=== PATIENT | female | born 1930 | race Caucasian/White ===

== ENCOUNTER 2016-07-12 12:49 | Observation (INO) | payer MEDICARE ==
[2016-07-12 13:34] LABS: #Basophils 0.1 thou/uL (0.0-0.2); #Eosinphils 0.2 thou/uL (0.0-0.7); #Lymphocytes 3.6 thou/uL (1.20-3.40); #Neutrophils 6.5 thou/uL (1.40-6.50); %Basophils 1.2 % (0.0-1.0); %Monocytes 8.4 % (0.0-10.0); Hematocrit 36.6 % (36.0-47.0); Mean Platelet Volume 7.1 fL (7.4-10.4); Red Blood Cell (RBC) Count 3.88 mill/uL (4.20-5.40); White Blood Cell (WBC) Count 11.4 thou/uL (4.8-10.8)
[2016-07-12 13:39] LABS: Bilirubin Negative (Negative); Blood, Urine Trace (Negative); Glucose, Urine (Dipstick) Negative (Negative); Ketone, Urine Negative (Negative); Nitrite Negative (Negative); Protein, Urine (Dipstick) Trace mg/dL (Neg-Trace); Urobilinogen 0.2 mg/dL (0.2-1.0)
[2016-07-12 13:49] LABS: Bacteria/HPF Rare-Few HPF (None Seen); RBC/HPF 0-3 HPF (0-3); Squamous Epithelial 0-3 HPF (0-3); WBC/HPF 0-3 HPF (0-3)
[2016-07-12 13:50] LABS: ALT (SGPT) 27 U/L (0-55); AST (SGOT) 28 U/L (5-34); Alkaline Phosphatase 90 U/L (40-150); Anion Gap 14 mmol/L (10-20); BUN (Urea Nitrogen) 67 mg/dL (9.8-20.1); Bilirubin, Total 0.3 mg/dL (0.2-1.2); Calc. Creatinine Clearance 0 mL/min (70-130); Calcium 9.3 mg/dL (7.8-10.44); Carbon Dioxide 25 mmol/L (23-31); Chloride 105 mmol/L (98-107); Estimated GFR-MDRD 23; Globulin 3.3 g/dL (2.4-3.5); Protein, Total 7.1 g/dL (5.8-8.1)
[2016-07-12 13:52] LABS: Troponin I Less than 0.010 ng/mL (< 0.028)
[2016-07-12 14:03] LABS: Lactic Acid - Sepsis 0.7 mmol/L (0.5-2.2)
[2016-07-12] MEDS ORDERED: Meclizine HCl 25 MG TAB ONE (14:27)
[2016-07-12] MEDS ORDERED: Metoclopramide HCl 10 MG/2 ML VIAL ONE (14:28)
--- NOTE | 2016-07-12 15:24 | ERRECORD ---
[facility] EMERGENCY RECORD HPI WEAK-DIZZY (13:15 DHAM) CHIEF COMPLAINT: Patient presents for evaluation of vertigo. HISTORIAN: History provided by patient, History provided by patient's family, Daughter that lives with her., Additional history obtained from EMS, Pt has "been dragging for a couple of days" with occas chills and hot flashes and nasal congestion. Had been about the same this morning and ate a big lunch and noted sudden onset of severe dizziness with nausea and one episode of vomiting. Also c/o left ear pain. This is similar to "4-5 episodes in my life where I get really dizzy and vomited." She and daughter tell me this usually resolves after 1-2 days and is usually associated with a URI. "I usually get better after I get on antibiotics. She has chronic vertigo symptoms "with the room spinning if I get too flat on a bed." She arrives via EMS. LOCATION: Symptoms are localized, left ear is painful. QUALITY: Patient is alert and oriented to person, place and time, Iftikhar coma score is 15, Pain is dull in nature, described as aching, Described as similar to previous episodes. SEVERITY: Current severity of pain rated as 0/10. TIME COURSE: Gradual onset of symptoms, 2, days priror to arrival, Symptoms are improving, "I'm not dizzy as long as I don't move my head.", with vertigo symptoms just starting 1 hours ago. ASSOCIATED WITH: Associated with ataxia, for 1 hour, No associated chest pain, Associated with chills, for 2 days, Associated with ear pain, for 2 hours, intermittent, Associated with fever, subjective, Associated with gait disturbance, No associated headache, Associated with nausea, for 1 hour, No associated palpitations, Associated with vomiting, Number of times: 1, for 1 hour, currently resolved, No associated visual changes, Associated with upper respiratory infection, for 2 days, constant. EXACERBATED BY: Patient's condition exacerbated by ambulating, Patient's condition exacerbated by position, Patient's condition exacerbated by movement, Patient's condition exacerbated by laying supine. RELIEVED BY: Patient's condition relieved by remaining still, Patient's condition relieved by received zofran 4mg en route and sitting upright helps. ROS (13:26 DHAM) CONSTITUTIONAL: Historian reports chills, reports fever. Subjective fever of mild hot flashes, Historian reports malaise, for 2 days now. EYES: Historian denies eye pain, denies eye redness, denies eye discharge, denies itching, denies nystagmus, denies photophobia, denies tearing, denies vision changes. ENT: Historian denies dysphasia, reports otalgia, &a-1R&a+25V*p+0X*c6340Y*c202B*c15G*c2P*p-0X&a-25V&a+1R Name: Susanne Nagel : 1930 F86 MedRec: [id number] AcctNum: [id number] Prepared: SunJul 13, 2016 01:22 by Interface Page 1 of 5 pMD [facility] EMERGENCY RECORD reports rhinorrhea, denies voice changes. CARDIOVASCULAR: Historian denies chest pain, no radiation, Historian denies diaphoresis, denies dyspnea on exertion, denies edema, denies orthopnea, denies syncope, denies palpitations. RESPIRATORY: Historian denies cough, denies shortness of breath, denies sputum, denies wheezing. GI: Historian denies abdominal pain, denies appetite changes, denies diarrhea, reports nausea, reports vomiting. GENITOURINARY FEMALE: Historian denies dysuria, denies frequency, denies urgency. "I go all the time but that's been the case for about a year.". MUSCULOSKELETAL: Historian denies arthralgias, denies back pain, denies fall, denies injury, denies neck pain. SKIN: Historian denies rash, denies skin changes. NEUROLOGIC: Historian denies confusion, reports dizziness, denies dysphasia, denies focal weakness, reports gait changes, denies headache, denies mental status changes, denies paralysis, denies paresthesias, denies seizures, denies sensory changes, denies speech changes, reports vertigo. ENDOCRINE: Historian denies polydipsia, denies polyuria. HEMO/LYMPHATIC: Historian denies abnormal blood clotting, denies easy bruising. ALLERGIC/IMMUNOLOGIC: Historian denies frequent infections, denies hives. PSYCHIATRIC: Negative psychiatric review of systems. PAST MEDICAL HISTORY MEDICAL HISTORY: Flu vaccine not up to date, Tetanus not up to date, Pneumococcal vaccine not up to date, GOUT, Past medical history includes history of diabetes, Past medical history includes history of hyperlipidemia, Past medical history includes history of hypertension. (Previously on hemodialysis, no longer recieving dialysis since January 2016) Verified 07/12/16. (13:25 LGIB) FEMALE SURGICAL HISTORY: Surgical history of tubal ligation. Peg tube placement and removal, heart valve replacement. Verified 07/12/16. (13:25 LGIB) PSYCHIATRIC HISTORY: No previous psychiatric history Verified 07/12/16. (13:25 LGIB) SOCIAL HISTORY: Patient denies alcohol use, Patient denies drug use, Patient has no smoking history. (13:25 LGIB) NOTES: I have reviewed the nursing documentation regarding PMHX, social hx, family hx, and surgical history as well as vitals and triage notes and agree. (13:32 DHAM) KNOWN ALLERGIES Keflex: - TIGHTNESS IN CHEST CURRENT MEDICATIONS allopurinol: &a-1R&a+25V*p+0X*c8599R*c202B*c15G*c2P*p-0X&a-25V&a+1R Name: Susanne Nagel : 1930 F86 MedRec: [id number] AcctNum: [id number] Prepared: Johanna Jul 13, 2016 01:22 by Interface Page 2 of 5 pMD [facility] EMERGENCY RECORD TABLET : Strength - 100 mg : ORAL Patient Dose: 100 mg Oral once a day. (13:10 LGIB) meTOPROLOL tartrate: TABLET : Strength - 25 mg : ORAL Patient Dose: 1 tab(s) Oral once a day. (13:10 LGIB) amLODIPine: TABLET : Strength - 5 mg : ORAL Patient Dose: 5 mg Oral once a day. (13:10 LGIB) glipiZIDE: TABLET : Strength - 5 mg : ORAL Patient Dose: 2.5 mg Oral once a day. (13:11 LGIB) atorvastatin: TABLET : Strength - 20 mg : ORAL Patient Dose: 1 tab(s) Oral once a day. (13:11 LGIB) aspirin: TABLET : Strength - 81 mg : ORAL Patient Dose: 1 tab(s) Oral once a day. (13:12 LGIB) VITAL SIGNS VITAL SIGNS: BP: 193/82, Pulse: 79, Resp: 20, Temp: 98.6 (Oral), O2 sat: 99 on Room Air, Time: 07/12/2016 13:00. (13:00 LSMI) Pain: 0, Time: 07/12/2016 13:01. (13:01 LSMI) BP: 159/82, Time: 07/12/2016 13:09. (13:09 LGIB) BP: 159/69, Pulse: 71, Resp: 18, Pain: 0, O2 sat: 98 on Room Air, Time: 07/12/2016 13:59. (13:59 LSMI) BP: 162/74, Pulse: 72, Resp: 17, Pain: 0, O2 sat: 97 on Room Air, Time: 07/12/2016 14:43. (14:43 LSMI) PHYSICAL EXAM (13:29 DHAM) CONSTITUTIONAL: Vital Signs Reviewed, Patient afebrile, Pulse normal, Blood pressure normal, Respiratory rate normal, Normal pulse oximetry, Patient appears non toxic, Patient appears pain free, Patient alert and oriented to person, place and time, Nursing notes reviewed. HEAD: Head exam included findings of head atraumatic, normocephalic. EYES: Eye exam included findings of eyelids normal to inspection, Pupils equally round and reactive to light, Extraocular muscles intact, Conjunctiva normal, Sclera normal, Eye exam included findings of anterior chamber clear. no nystagmus. no visual field defects. ENT: Ear exam normal, external ear normal, tympanic membranes normal, no foreign body, no drainage, no bleeding, hearing normal, Nose exam normal, no nasal deformity, no bleeding from nares, no bleeding from hypopharynx, no foreign body visualized, no septal hematoma, no septal necrosis, No turbinate mucosa discharge, Pharynx exam normal, not injected, no swelling, symmetrical, Uvula exam normal, midline, no edema, Tonsil exam normal, not enlarged, no exudates, Mouth exam normal, mucous membranes moist, no drooling, no lesions, no lacerations, no tongue elevation, teeth normal. &a-1R&a+25V*p+0X*y4216Y*c202B*c15G*c2P*p-0X&a-25V&a+1R Name: Susanne Nagel : 1930 F86 MedRec: [id number] AcctNum: [id number] Prepared: Johanna Jul 13, 2016 01:22 by Interface Page 3 of 5 D [facility] EMERGENCY RECORD NECK: Neck exam included findings of normal range of motion, Trachea midline, Thyroid normal, no meningeal signs, no cervical adenopathy, no tenderness, no contusions, no ecchymosis. RESPIRATORY CHEST: Respiratory exam included findings of no respiratory distress, Breath sounds clear, No wheezing, No rales, No rhonchi, Breath sounds not diminished, Chest exam included findings of chest movement symmetrical. CARDIOVASCULAR: Cardiovascular exam included findings of heart rate regular rate and rhythm, Heart sounds normal, normal S1, normal S2, no murmurs, no rub, no gallop. ABDOMEN FEMALE: Abdominal exam included findings of abdomen nontender, Bowel sounds normal, Liver normal, Spleen normal, no distension, no pulsatile masses, no peritoneal signs, no ventral hernia. BACK: Back exam normal. UPPER EXTREMITY: Upper extremity exam normal, Upper extremity exam included findings of inspection normal, no abrasions, no contusions, no deformity, no lacerations, Range of motion normal, Motor strength normal, Sensation intact, Brachial pulse normal, Radial pulse normal. LOWER EXTREMITY: Lower extremity exam normal, Lower extremity exam included findings of inspection normal, no abrasions, no contusions, no deformity, no lacerations, Range of motion normal, Motor strength normal, Sensation intact, Pedal pulse normal, Miky's negative, no edema, no calf tenderness. NEURO: Neuro exam findings include patient oriented to person, place and time, Speech normal, no nystagmus, NIHSS is 0, [place] coma scale 15, Memory normal, Cranial nerves intact, Deep tendon reflexes normal, no focal motor deficits, no focal sensory deficits. She has a mild baseline intention tremor that has been present for years. test of skew is neg. no nystagmus on lateral gaze. She could not lay back quickly enough to really perform an adequate barany maneuver and declines to lay to the left because "I always get really dizzy when I lay on my left side for years now." Head impulse test shows a past gaze to the right but not to the left. I suspect this is vertigo vs labyrinthitis. SKIN: Skin exam included findings of skin warm, dry, and normal in color, no rash. LYMPHATIC: Lymphatic exam normal, Lymphatic exam included findings of cervical nodes normal. PSYCHIATRIC: Psychiatric exam included findings of patient oriented to person place and time, Normal affect, Judgment normal, Insight normal, Remote memory normal, Recent memory normal, Concentration normal, No suicidal ideations, No homicidal ideations. EKG INTERPRETATION (13:13 DHAM) 12 LEAD EKG INTERPRETATION: 12 lead EKG interpreted by Emergency Department Physician at time of study, 12 lead EKG shows normal sinus rhythm, Rate (beats per minute): 71, with no ectopics, Compared with previous EKG from, 04/18/2015 13:14, Similar to old EKG, Conduction &a-1R&a+25V*p+0X*n5691Z*c202B*c15G*c2P*p-0X&a-25V&a+1R Name: Susanne Nagel : 1930 F86 MedRec: [id number] AcctNum: [id number] Prepared: [facility] Jul 13, 2016 01:22 by Interface Page 4 of 5 pMD [facility] EMERGENCY RECORD with, first degree AV block, ST segments normal, T waves normal, [place] normal. RADIOLOGYINTERPRETATION HEAD: Head CT negative, without contrast, no bleed, no mass, no acute ischemic stroke, no acute changes, Pt discussed with Dr. Rosales at 1340. (13:58 DHAM) CHEST: Chest films negative, no infiltrates, no pneumothorax, no hemothorax, no masses, no cardiomegaly, no congestive heart failure, no effusion, no free air. (13:59 DHAM) MEDICATION ADMINISTRATION SUMMARY Drug Name: Antivert, Dose Ordered: 1 tab(s), Route: Oral, Status: Canceled, Time: 14:27 07/12/2016, Drug Name: *Reglan injection, Dose Ordered: 5 mg, Route: IV Piggy Back, Status: Given, Time: 14:40 07/12/2016, Drug Name: *Antivert, Dose Ordered: 12.5 mg, Route: Oral, Status: Given, Time: 14:25 07/12/2016, *Additional information available in notes, Detailed record available in Medication Service section. DOCTOR NOTES TEXT: I discussed the pt with Dr. Gomez at 1420 who accepts the pt into obs. (14:26 DHAM) Pt has fairly normal labs and bun/creat appear at baseline. She has no focal neuro changes but with standing, she retropulses and falls backward. Her daughter says that this is worse than usual but she has had "bad vertigo" if she lays on her left side" for many years. She may have a viral labyrinthitis vs VGE vs Benign positional vertigo. I had originally suggested an MRI but they are adamant that this has been going on for years and decline a transfer to [place] in [place]. She does consent to observation to our facility. (14:29 DHAM) PROBLEM LIST No recorded problems DIAGNOSIS (14:34 DHAM) FINAL: PRIMARY: BENIGN PAROXYSMAL VERTIGO BILATERAL, ADDITIONAL: viral gastroenteritis. PRESCRIPTION No recorded prescriptions DISPOSITION PATIENT: Disposition Type: Admit, Disposition: [facility]. (14:34 DHAM) Patient left the department. (15:13 LSMI) Ochoa: RUSSELL=MD Darius, Shawn LGIB=VIKAS Swan, Maria Teresa LSMI=NESSA Castro Leah &a-1R&a+25V*p+0X*f3082C*c202B*c15G*c2P*p-0X&a-25V&a+1R Name: Susanne Nagel : 1930 F86 MedRec: [id number] AcctNum: [id number] Prepared: [facility] Jul 13, 2016 01:22 by Interface Page 5 of 5 pMD MTDD
--- NOTE | 2016-07-12 15:27 | PICIS ---
[facility] EMERGENCY RECORD TRIAGE (12:56 LGIB) TRIAGE NOTES: N/V, DIZZINESS. (12:56 LGIB) PATIENT: NAME: Susanne Nagel, AGE: 86, GENDER: female, : [id number], TIME OF GREET: SunJul 12, 2016 12:50, PREFERRED LANGUAGE: Spanish, ETHNICITY: Not or , ECODE BILLING MAP: [facility], SSN: [id number], Zip Code: [address], KG WEIGHT: 63.50, PHONE: , , , PERSON ID: [id number], PAYMENT: [employer], PCP: MD Chance Kyle. (12:56 LGIB) COMPLAINT: N/V DIZZY. (12:56 LGIB) ADMISSION: URGENCY: 3 Urgent, ADMISSION SOURCE: Home, AMBULANCE: [facility], TRANSPORT: AMBULANCE - [facility], BED: ER -04. (12:56 LGIB) SIRS SCORING: Heart Rate 55-109 (0), Temp range 96.8-101.1 (0), respiratory rate 12-24 (0), Mental Status altered: no (0), Total SIRS Score 0. (13:22 LGIB) Heart Rate 55-109 (0), Temp range 96.8-101.1 (0), respiratory rate 12-24 (0), Mental Status altered: no (0), Total SIRS Score 0. (13:25 LGIB) TREATMENTS IN PROGRESS: Treatments given Prehospital: NS and 4mg zofran. (13:25 LGIB) PROVIDERS: TRIAGE NURSE: Maria Teresa Swan RN. (12:56 LGIB) PREVIOUS VISIT ALLERGIES: Keflex. (12:56 LGIB) Keflex. (13:25 LGIB) KNOWN ALLERGIES Keflex: - TIGHTNESS IN CHEST CURRENT MEDICATIONS allopurinol: TABLET : Strength - 100 mg : ORAL Patient Dose: 100 mg Oral once a day. (13:10 LGIB) meTOPROLOL tartrate: TABLET : Strength - 25 mg : ORAL Patient Dose: 1 tab(s) Oral once a day. (13:10 LGIB) amLODIPine: TABLET : Strength - 5 mg : ORAL Patient Dose: 5 mg Oral once a day. (13:10 LGIB) glipiZIDE: TABLET : Strength - 5 mg : ORAL Patient Dose: 2.5 mg Oral once a day. (13:11 LGIB) atorvastatin: TABLET : Strength - 20 mg : ORAL Patient Dose: 1 tab(s) Oral once a day. (13:11 LGIB) aspirin: TABLET : Strength - 81 mg : ORAL Patient Dose: 1 tab(s) Oral once a day. (13:12 LGIB) VITAL SIGNS VITAL SIGNS: BP: 193/82, Pulse: 79, Resp: 20, Temp: 98.6 (Oral), &a-1R&a+25V*p+0X*p4455A*c202B*c15G*c2P*p-0X&a-25V&a+1R Name: Susanne Nagel : 1930 F86 MedRec: [id number] AcctNum: [id number] Prepared: [facility] Jul 13, 2016 01:22 by Interface Page 1 of 12 pMD [facility] EMERGENCY RECORD O2 sat: 99 on Room Air, Time: 07/12/2016 13:00. (13:00 LSMI) Pain: 0, Time: 07/12/2016 13:01. (13:01 LSMI) BP: 159/82, Time: 07/12/2016 13:09. (13:09 LGIB) BP: 159/69, Pulse: 71, Resp: 18, Pain: 0, O2 sat: 98 on Room Air, Time: 07/12/2016 13:59. (13:59 LSMI) BP: 162/74, Pulse: 72, Resp: 17, Pain: 0, O2 sat: 97 on Room Air, Time: 07/12/2016 14:43. (14:43 LSMI) NURSING ASSESSMENT: FALL RISK (14:24 LGIB) FALL RISK: Fall risk assessment findings include: no history of falls (0), No bed rest greater than 2 days (0), No use of level of consciousness altering agents with mentation or cognitive changes (0), No change in blood pressure (0), No sensory deficits (0), Impaired mobility (3), Neurologic diagnosis (3), No elimination problems (0), No confusion (0), Total score 6. NURSING ASSESSMENT: HEAD-TO-TOE (13:15 LGIB) CONSTITUTIONAL: Complex assessment performed, Patient arrives, via [facility], History obtained from, family member: DAUGHTER, Patient appears, Patient cooperative, Patient alert, Oriented to person, place and time, Skin warm, Skin dry, Skin normal in color, Mucous membranes pink, Mucous membranes, dry, Patient is well-groomed, Patient complains of N/V, DIZZY, PT REPORTS HAVING EPISODES OF NAUSEA, VOMITING AND DIZZINESS THIS MORNING. WHEN PATIENT STANDS OR LEANS BACK SHE BECOMES DIZZY. NAD, RR EVEN AND UNLABORED. PAIN: Patient rates pain as 0 out of 10. SKIN: Skin assessment findings include skin warm, Skin dry, Skin normal in color. RESPIRATORY/CHEST: Breath sounds clear, Respiratory assessment findings include respiratory effort easy, Respirations regular, Conversing normally, Neck and chest exam findings include trachea midline, Chest expansion equal, Chest movement symmetrical, no signs of distress, no retractions noted, no cyanosis. CARDIOVASCULAR: Cardiovascular assessment findings include heart rate normal, Heart sounds normal, S1, S2, Left radial pulse +3(easily palpated, considered normal), Right radial pulse +3(easily palpated, considered normal), Left dorsalis pedis pulse +3(easily palpated, considered normal), Right dorsalis pedis pulse +3(easily palpated, considered normal). ABDOMEN: Abdomen assessment findings include abdomen symmetrical, Abdomen soft, non-tender, Bowel sound normal, Associated with nausea, Associated with vomiting, history of vomiting, NOT CURRENTLY IN THE E.R., no associated diarrhea. GENITOURINARY FEMALE: Notes: NO COMPLAINTS. NURSING PROCEDURE: ADMISSION ADMISSION: Report [facility] [id number] [facility] &a-1R&a+25V*p+0X*p5501A*c202B*c15G*c2P*p-0X&a-25V&a+1R Name: Susanne Nagel : 1930 F86 MedRec: [id number] AcctNum: [id number] Prepared: [facility] Jul 13, 2016 01:22 by Interface Page 2 of 12 D [facility] EMERGENCY RECORD Patient admitted to a medical-surgical unit, room number 117, Transported via cart/stretcher, Transported with disposable blood pressure cuff, Transported with saline lock. (15:13 LSMI) NURSING PROCEDURE: BEDSIDE RADIOLOGY (13:40 LGIB) BEDSIDE RADIOLOGY: Portable chest x-ray performed. NURSING PROCEDURE: MARINE SERVICE OPERATOR (12:58 LGIB) MARINE SERVICE OPERATOR: Patient placed on agronomy teacher, Patient placed on non-invasive blood pressure monitor, Patient placed on continuous pulse oximetry. NURSING PROCEDURE: COMMUNICATIONS COMMUNICATIONS: Physician, dr Rosales called with ct report and spoke with dr rodriguez. (13:39 LSMI) Physician, dr rodriguez spoke with dr chance regarding admission. (14:19 LSMI) NURSING PROCEDURE: EKG CHART (13:05 LSMI) PATIENT IDENTIFIER: Patient actively involved in identification process, Patient's identity verified by patient stating name, Patient's identity verified by patient stating date, Patient's identity verified by hospital ID bracelet, Patient's identity verified by family member. EKG: EKG indicated for dizziness, 12 lead EKG performed on the left chest, done by anil castro lvn, first EKG. FOLLOW-UP: After procedure, EKG for interpretation given to Dr. rodriguez. NURSING PROCEDURE: IV IV SITE 1: IV therapy indicated for hydration, IV therapy indicated for medication administration, IV established, to the left antecubital, using a 22 gauge catheter, Saline lock established, Notes: STARTED BY EMS FIELD GAUGER. (13:00 LGIB) FOLLOW-UP SITE 1: Notes: ivhl remains intact upon admission to room 117. (15:13 LSMI) NURSING PROCEDURE: LAB DRAW (13:24 LGIB) LAB DRAW: Lab draw indicated for obtaining specimens for evaluation, Initial lab draw performed, by venipuncture, from right antecubital, in one attempt, Lab specimens labeled in the presence of the patient and sent to lab, Notes: Done by Tuan Rader Tech. FOLLOW-UP: After procedure, dressing applied to site. NURSING PROCEDURE: NURSE NOTES (14:49 LGIB) NURSES NOTES: Notes: NO NEEDS AT THIS TIME, NAD, RR EVEN AND UNLABORED. NURSING PROCEDURE: TRANSPORT TO TESTS &a-1R&a+25V*p+0X*d8081C*c202B*c15G*c2P*p-0X&a-25V&a+1R Name: Susanne Nagel: 1930 F86 MedRec: [id number] AcctNum: [id number] Prepared: Johanna Jul 13, 2016 01:22 by Interface Page 3 of 12 [facility] EMERGENCY RECORD TRANSPORT TO TESTS: Transport indicated to facilitate diagnosis, Patient transported to CT scan, via cart, Accompanied by x-ray weld technician. (13:28 LGIB) FOLLOW-UP: After procedure, patient returned to emergency department. (13:36 LGIB) NURSING PROCEDURE: URINE COLLECTION (13:20 LSMI) PATIENT IDENTIFIER: Patient actively involved in identification process, Patient's identity verified by patient stating name, Patient's identity verified by patient stating date, Patient's identity verified by hospital ID bracelet, Patient's identity verified by family member. URINE COLLECTION FEMALE: Urine collected by straight cath, using an 8fr catheter kit, in one attempt. ORDER DETAILS Order Name: BLOOD GLUCOSE MONITOR, Status: Done, Time: 13:07/12/2016, User: JONG, - Ordered for: MD Rodriguez Darren, - Entered by: MD Rodriguez Darren - SunJul 12, 2016 13:12, - Quantity: 1, Order Name: MARINE SERVICE OPERATOR ED, Status: Done, Time: 13:13 07/12/2016, User: EVIE, - Ordered for: MD Rodriguez Darren, - Entered by: MD Rodriguez Darren - SunJul 12, 2016 13:12, - Quantity: 1, Order Name: Cardiac Profile w/CKMB & Troponin - I, Status: Active, Time: 13:12 07/12/2016, User: RUSSELL, - Ordered for: MD Rodriguez Darren, - Entered by: MD Rodriguez Darren - SunJul 12, 2016 13:12, - Quantity: 1, Order Name: CATH STRAIGHT ED, Status: Done, Time: 13:22 07/12/2016, User: JONG, - Ordered for: MD Rodriguez Darren, - Entered by: MD Rodriguez Darren - SunJul 12, 2016 13:12, - Quantity: 1, Order Name: CBC with Differential, Status: Active, Time: 13:12 07/12/2016, User: RUSSELL, - Ordered for: MD Rodriguez Darren, - Entered by: MD Rodriguez Darren - SunJul 12, 2016 13:12, - Quantity: 1, Order Name: Comprehensive Metabolic Panel, Status: Active, Time: 13:12 07/12/2016, User: RUSSELL, - Ordered for: MD Rodriguez Darren, - Entered by: MD Rodriguez Darren - SunJul 12, 2016 13:12, - Quantity: 1, Order Name: CT Brain WO Con, Status: Active, Time: 13:12 07/12/2016, User: RUSSELL, - Ordered for: MD Rodriguez Darren, &a-1R&a+25V*p+0X*u9288D*c202B*c15G*c2P*p-0X&a-25V&a+1R Name: Susanne Nagel : 1930 F86 MedRec: [id number] AcctNum: [id number] Prepared: [facility] Jul 13, 2016 01:22 by Interface Page 4 of 12 [facility] EMERGENCY RECORD - Entered by: MD Rodriguez Darren - SunJul 12, 2016 13:12, - Quantity: 1, Order Name: EKG 12 Lead in Emergency Room, Status: Active, Time: 13:12 07/12/2016, User: RUSSELL, - Ordered for: MD Rodriguez Darren, - Entered by: MD Rodriguez Darren - SunJul 12, 2016 13:12, - Quantity: 1, Order Name: ERRT Pulse Oximeter ER, Status: Active, Time: 13:12 07/12/2016, User: RUSSELL, - Ordered for: MD Rodriguez Darren, - Entered by: MD Rodriguez Darren - SunJul 12, 2016 13:12, - Quantity: 1, Order Name: Lactic Acid with repeat, Status: Active, Time: 13:12 07/12/2016, User: RUSSELL, - Ordered for: MD Rodriguez Darren, - Entered by: MD Rodriguez Darren - SunJul 12, 2016 13:12, - Quantity: 1, Order Name: Urinalysis w/ Rflx Microscopic, Status: Active, Time: 13:12 07/12/2016, User: RUSSELL, - Ordered for: MD Rodriguez Darren, - Entered by: MD Rodriguez Darren - SunJul 12, 2016 13:12, - Quantity: 1, Order Name: XR Chest 1 View Portable, Status: Active, Time: 13:12 07/12/2016, User: RUSSELL, - Ordered for: MD Rodriguez Darren, - Entered by: MD Rodriguez Darren - SunJul 12, 2016 13:12, - Quantity: 1. MEDICATION ADMINISTRATION SUMMARY Drug Name: Antivert, Dose Ordered: 1 tab(s), Route: Oral, Status: Canceled, Time: 14:27 07/12/2016, Drug Name: *Reglan injection, Dose Ordered: 5 mg, Route: IV Piggy Back, Status: Given, Time: 14:40 07/12/2016, Drug Name: *Antivert, Dose Ordered: 12.5 mg, Route: Oral, Status: Given, Time: 14:25 07/12/2016, *Additional information available in notes, Detailed record available in Medication Service section. MEDICATION SERVICE Antivert: Order: Antivert (meclizine HCl) - Dose: 12.5 mg : Oral Schedule: Now Notes: 12.5mg oral now. Ordered by: Shawn Rodriguez MD Entered by: Shawn Rodriguez MD SunJul 12, 2016 14:28 , Acknowledged by: Danae Castro LVN SunJul 12, 2016 14:30 Documented as given by: Danae Castro LVN SunJul 12, 2016 14:25 Patient, Medication, Dose, Route and Time verified prior to administration. Site: Medication administered S.L., Correct patient, time, route, &a-1R&a+25V*p+0X*x0526P*c202B*c15G*c2P*p-0X&a-25V&a+1R Name: AgustinryanAbel sierramarco a Bass : 1930 F86 MedRec: [id number] AcctNum: [id number] Prepared: [facility] Jul 13, 2016 01:22 by Interface Page 5 of 12 pMD [facility] EMERGENCY RECORD dose and medication confirmed prior to administration, Patient advised of actions and side-effects prior to administration, Allergies confirmed and medications reviewed prior to administration, Patient in position of comfort, Side rails up, Cart in lowest position, Family at bedside, Call light in reach. Reglan injection: Order: Reglan injection (metoclopramide HCl) - Dose: 5 mg : IV Piggy Back Schedule: Now Notes: in 50ml minibag please Ordered by: Shawn Rodriguez MD Entered by: Shawn Rodriguez MD SunJul 12, 2016 14:29 , Acknowledged by: Danae Castro LVN SunJul 12, 2016 14:30 Documented as given by: Danae Castro LVN SunJul 12, 2016 14:40 Patient, Medication, Dose, Route and Time verified prior to administration. IV SITE #1 IVPB or drip, initial infusion, IVPB mixed in: 100ml, via primary tubing, Catheter placement confirmed via flush prior to administration, IV site without signs or symptoms of infiltration during medication administration, No swelling during administration, No drainage during administration, IV flushed after administration, Correct patient, time, route, dose and medication confirmed prior to administration, Patient advised of actions and side-effects prior to administration, Allergies confirmed and medications reviewed prior to administration, Patient in position of comfort, Side rails up, Cart in lowest position, Family at bedside, Call light in reach. : Follow Up : Response assessment performed, No signs or symptoms of allergic reaction noted, _IV SITE #1:_, Medication infusion discontinued, on SunJul 12, 2016 15:10, 30 minutes, ., Total amount infused: 100, IV Line flushed after administration. (15:10 LSMI) (CANCELED) Antivert: Order: Antivert (meclizine HCl) - Dose: 1 tab(s) : Oral Schedule: Now Ordered by: Shawn Rodriguez MD Entered by: Shawn Rodriguez MD SunJul 12, 2016 14:17 , Acknowledged by: Danae Castro LVN SunJul 12, 2016 14:18 Canceled by: Shawn Rodriguez MD. SunJul 12, 2016 14:27 Cancel reason: Change in medication plan. HPI WEAK-DIZZY (13:15 DHAM) CHIEF COMPLAINT: Patient presents for evaluation of vertigo. HISTORIAN: History provided by patient, History provided by patient's family, Daughter that lives with her., Additional history obtained from EMS, Pt has "been dragging for a couple of days" with occas chills and hot flashes and nasal congestion. Had been about the same this morning and ate a big lunch and noted sudden onset of severe dizziness with nausea and one episode of vomiting. Also c/o left ear pain. This is similar to "4-5 episodes in my life where I get really dizzy and vomited." She and daughter tell me this usually resolves after 1-2 days and is usually &a-1R&a+25V*p+0X*y1334X*c202B*c15G*c2P*p-0X&a-25V&a+1R Name: Susanne Nagel : 1930 F86 MedRec: [id number] AcctNum: [id number] Prepared: SunJul 13, 2016 01:22 by Interface Page 6 of 12 pMD [facility] EMERGENCY RECORD associated with a URI. "I usually get better after I get on antibiotics. She has chronic vertigo symptoms "with the room spinning if I get too flat on a bed." She arrives via EMS. LOCATION: Symptoms are localized, left ear is painful. QUALITY: Patient is alert and oriented to person, place and time, [employer] coma score is 15, Pain is dull in nature, described as aching, Described as similar to previous episodes. SEVERITY: Current severity of pain rated as 0/10. TIME COURSE: Gradual onset of symptoms, 2, days priror to arrival, Symptoms are improving, "I'm not dizzy as long as I don't move my head.", with vertigo symptoms just starting 1 hours ago. ASSOCIATED WITH: Associated with ataxia, for 1 hour, No associated chest pain, Associated with chills, for 2 days, Associated with ear pain, for 2 hours, intermittent, Associated with fever, subjective, Associated with gait disturbance, No associated headache, Associated with nausea, for 1 hour, No associated palpitations, Associated with vomiting, Number of times: 1, for 1 hour, currently resolved, No associated visual changes, Associated with upper respiratory infection, for 2 days, constant. EXACERBATED BY: Patient's condition exacerbated by ambulating, Patient's condition exacerbated by position, Patient's condition exacerbated by movement, Patient's condition exacerbated by laying supine. RELIEVED BY: Patient's condition relieved by remaining still, Patient's condition relieved by received zofran 4mg en route and sitting upright helps. ROS (13:26 DHAM) CONSTITUTIONAL: Historian reports chills, reports fever. Subjective fever of mild hot flashes, Historian reports malaise, for 2 days now. EYES: Historian denies eye pain, denies eye redness, denies eye discharge, denies itching, denies nystagmus, denies photophobia, denies tearing, denies vision changes. ENT: Historian denies dysphasia, reports otalgia, reports rhinorrhea, denies voice changes. CARDIOVASCULAR: Historian denies chest pain, no radiation, Historian denies diaphoresis, denies dyspnea on exertion, denies edema, denies orthopnea, denies syncope, denies palpitations. RESPIRATORY: Historian denies cough, denies shortness of breath, denies sputum, denies wheezing. GI: Historian denies abdominal pain, denies appetite changes, denies diarrhea, reports nausea, reports vomiting. GENITOURINARY FEMALE: Historian denies dysuria, denies frequency, denies urgency. "I go all the time but that's been the case for &a-1R&a+25V*p+0X*t8629P*c202B*c15G*c2P*p-0X&a-25V&a+1R Name: Susanne Nagel : 1930 F86 MedRec: [id number] AcctNum: [id number] Prepared: SunJul 13, 2016 01:22 by Interface Page 7 of 12 pMD [facility] EMERGENCY RECORD about a year.". MUSCULOSKELETAL: Historian denies arthralgias, denies back pain, denies fall, denies injury, denies neck pain. SKIN: Historian denies rash, denies skin changes. NEUROLOGIC: Historian denies confusion, reports dizziness, denies dysphasia, denies focal weakness, reports gait changes, denies headache, denies mental status changes, denies paralysis, denies paresthesias, denies seizures, denies sensory changes, denies speech changes, reports vertigo. ENDOCRINE: Historian denies polydipsia, denies polyuria. HEMO/LYMPHATIC: Historian denies abnormal blood clotting, denies easy bruising. ALLERGIC/IMMUNOLOGIC: Historian denies frequent infections, denies hives. PSYCHIATRIC: Negative psychiatric review of systems. PAST MEDICAL HISTORY MEDICAL HISTORY: Flu vaccine not up to date, Tetanus not up to date, Pneumococcal vaccine not up to date, GOUT, Past medical history includes history of diabetes, Past medical history includes history of hyperlipidemia, Past medical history includes history of hypertension. (Previously on hemodialysis, no longer recieving dialysis since January 2016) Verified 07/12/16. (13:25 LGIB) FEMALE SURGICAL HISTORY: Surgical history of tubal ligation. Peg tube placement and removal, heart valve replacement. Verified 07/12/16. (13:25 LGIB) PSYCHIATRIC HISTORY: No previous psychiatric history Verified 07/12/16. (13:25 LGIB) SOCIAL HISTORY: Patient denies alcohol use, Patient denies drug use, Patient has no smoking history. (13:25 LGIB) NOTES: I have reviewed the nursing documentation regarding PMHX, social hx, family hx, and surgical history as well as vitals and triage notes and agree. (13:32 DHAM) PHYSICAL EXAM (13:29 DHAM) CONSTITUTIONAL: Vital Signs Reviewed, Patient afebrile, Pulse normal, Blood pressure normal, Respiratory rate normal, Normal pulse oximetry, Patient appears non toxic, Patient appears pain free, Patient alert and oriented to person, place and time, Nursing notes reviewed. HEAD: Head exam included findings of head atraumatic, normocephalic. EYES: Eye exam included findings of eyelids normal to inspection, Pupils equally round and reactive to light, Extraocular muscles intact, Conjunctiva normal, Sclera normal, Eye exam included findings of anterior chamber clear. no nystagmus. no visual field defects. ENT: Ear exam normal, external ear normal, tympanic membranes normal, no foreign body, no drainage, no bleeding, hearing normal, Nose exam normal, no nasal deformity, no bleeding from nares, no &a-1R&a+25V*p+0X*n2817S*c202B*c15G*c2P*p-0X&a-25V&a+1R Name: Susanne Nagel : 1930 F86 MedRec: [id number] AcctNum: [id number] Prepared: [facility] Jul 13, 2016 01:22 by Interface Page 8 of 12 pMD [facility] EMERGENCY RECORD bleeding from hypopharynx, no foreign body visualized, no septal hematoma, no septal necrosis, No turbinate mucosa discharge, Pharynx exam normal, not injected, no swelling, symmetrical, Uvula exam normal, midline, no edema, Tonsil exam normal, not enlarged, no exudates, Mouth exam normal, mucous membranes moist, no drooling, no lesions, no lacerations, no tongue elevation, teeth normal. NECK: Neck exam included findings of normal range of motion, Trachea midline, Thyroid normal, no meningeal signs, no cervical adenopathy, no tenderness, no contusions, no ecchymosis. RESPIRATORY CHEST: Respiratory exam included findings of no respiratory distress, Breath sounds clear, No wheezing, No rales, No rhonchi, Breath sounds not diminished, Chest exam included findings of chest movement symmetrical. CARDIOVASCULAR: Cardiovascular exam included findings of heart rate regular rate and rhythm, Heart sounds normal, normal S1, normal S2, no murmurs, no rub, no gallop. ABDOMEN FEMALE: Abdominal exam included findings of abdomen nontender, Bowel sounds normal, Liver normal, Spleen normal, no distension, no pulsatile masses, no peritoneal signs, no ventral hernia. BACK: Back exam normal. UPPER EXTREMITY: Upper extremity exam normal, Upper extremity exam included findings of inspection normal, no abrasions, no contusions, no deformity, no lacerations, Range of motion normal, Motor strength normal, Sensation intact, Brachial pulse normal, Radial pulse normal. LOWER EXTREMITY: Lower extremity exam normal, Lower extremity exam included findings of inspection normal, no abrasions, no contusions, no deformity, no lacerations, Range of motion normal, Motor strength normal, Sensation intact, Pedal pulse normal, Miky's negative, no edema, no calf tenderness. NEURO: Neuro exam findings include patient oriented to person, place and time, Speech normal, no nystagmus, NIHSS is 0, Iftikhar coma scale 15, Memory normal, Cranial nerves intact, Deep tendon reflexes normal, no focal motor deficits, no focal sensory deficits. She has a mild baseline intention tremor that has been present for years. test of skew is neg. no nystagmus on lateral gaze. She could not lay back quickly enough to really perform an adequate barany maneuver and declines to lay to the left because "I always get really dizzy when I lay on my left side for years now." Head impulse test shows a past gaze to the right but not to the left. I suspect this is vertigo vs labyrinthitis. SKIN: Skin exam included findings of skin warm, dry, and normal in color, no rash. LYMPHATIC: Lymphatic exam normal, Lymphatic exam included findings of cervical nodes normal. PSYCHIATRIC: Psychiatric exam included findings of patient oriented to person place and time, Normal affect, Judgment normal, Insight normal, Remote memory normal, Recent memory normal, Concentration normal, No suicidal ideations, No homicidal ideations. &a-1R&a+25V*p+0X*q1110A*c202B*c15G*c2P*p-0X&a-25V&a+1R Name: Susanne Nagel : 1930 F86 MedRec: [id number] AcctNum: [id number] Prepared: SunJul 13, 2016 01:22 by Interface Page 9 of 12 pMD [facility] EMERGENCY RECORD EVENTS TRANSFER: Triage to Emergency Emergency Room -04. (SunJul 12, 2016 12:56 LGIB) Removed from Emergency Emergency Room -04. (15:13 LSMI) RADIOLOGYINTERPRETATION HEAD: Head CT negative, without contrast, no bleed, no mass, no acute ischemic stroke, no acute changes, Pt discussed with Dr. Rosales at 1340. (13:58 DHAM) CHEST: Chest films negative, no infiltrates, no pneumothorax, no hemothorax, no masses, no cardiomegaly, no congestive heart failure, no effusion, no free air. (13:59 DHAM) EKG INTERPRETATION (13:13 DHAM) 12 LEAD EKG INTERPRETATION: 12 lead EKG interpreted by Emergency Department Physician at time of study, 12 lead EKG shows normal sinus rhythm, Rate (beats per minute): 71, with no ectopics, Compared with previous EKG from, 04/18/2015 13:14, Similar to old EKG, Conduction with, first degree AV block, ST segments normal, T waves normal, [place] normal. O2SAT INTERPRETATION (13:33 DHAM) O2SAT: Continuous pulse oximetry, Oxygen saturation 99%, on room air, Oxygen saturation interpretation: Normal, No intervention required. DOCTOR NOTES TEXT: I discussed the pt with Dr. Chance at 1420 who accepts the pt into obs. (14:26 DHAM) Pt has fairly normal labs and bun/creat appear at baseline. She has no focal neuro changes but with standing, she retropulses and falls backward. Her daughter says that this is worse than usual but she has had "bad vertigo" if she lays on her left side" for many years. She may have a viral labyrinthitis vs VGE vs Benign positional vertigo. I had originally suggested an MRI but they are adamant that this has been going on for years and decline a transfer to [facility] in [place]. She does consent to observation to our facility. (14:29 DHAM) PROBLEM LIST No recorded problems DIAGNOSIS (14:34 DHAM) FINAL: PRIMARY: BENIGN PAROXYSMAL VERTIGO BILATERAL, ADDITIONAL: viral gastroenteritis. DISPOSITION PATIENT: Disposition Type: Admit, Disposition: [facility]. (14:34 DHAM) &a-1R&a+25V*p+0X*[id number]*c202B*c15G*c2P*p-0X&a-25V&a+1R Name: Susanne Nagel : 1930 F86 MedRec: [id number] AcctNum: [id number] Prepared: SunJul 13, 2016 01:22 by Interface Page 10 of 12 pMD [facility] EMERGENCY RECORD Patient left the department. (15:13 LSMI) PRESCRIPTION No recorded prescriptions IMAGING MONITOR STRIPS: Image captured from scanner. (13:27 LGIB) *EKG: Image captured from scanner. (13:28 LGIB) ADMISSION ORDERS: Image captured from scanner. (14:41 LSMI) *SUPPLY CHARGE SHEET: Image captured from scanner. (15:11 LSMI) ADMIN (SunJul 13, 2016 01:20 DHAM) DIGITAL SIGNATURE: MD Rodriguez Darren. RESULTS LABORATORY: CBC with Differential Collection DT: SunJul 12, 2016 13:30, *White Blood Cell (WBC) Count 11.4 - H thou/uL, Range (4.8-10.8), *Red Blood Cell (RBC) Count 3.88 - L mill/uL, Range (4.20-5.40), *Hemoglobin 11.8 - L g/dL, Range (12.0-16.0), Hematocrit 36.6 %, Range (36.0-47.0), Mean Corpuscular Volume 94.2 fl, Range (81.0-99.0), Mean Corpuscular Hemoglobin 30.5 pg, Range (27.0-31.0), Mean Corpuscular HGB CONC 32.4 g/dL, Range (32.0-36.0), RBC Distribution Width 13.3 %, Range (11.5-14.5), Platelet Count 145 thou/uL, Range (130-400), *Mean Platelet Volume 7.1 - L fL, Range (7.4-10.4), %Neutrophils 57.2 %, Range (42.0-75.0), %Lymphocytes 31.1 %, Range (21.0-51.0), %Monocytes 8.4 %, Range (0.0-10.0), %Eosinophils 2.0 %, Range (0.0-10.0), *%Basophils 1.2 - H %, Range (0.0-1.0), #Neutrophils 6.5 thou/uL, Range (1.40-6.50), *#Lymphocytes 3.6 - H thou/uL, Range (1.20-3.40), *#Monocytes 1.0 - H thou/uL, Range (0.11-0.59), #Eosinphils 0.2 thou/uL, Range (0.0-0.7), #Basophils 0.1 thou/uL, Range (0.0-0.2). (13:36 DHAM) Lactic Acid for Sepsis Collection DT: SunJul 12, 2016 13:51, Lactic Acid - Sepsis 0.7 mmol/L, Range (0.5-2.2). (14:15 DHAM) Cardiac Profile w/CKMB & TropI Collection DT: SunJul 12, 2016 13:30, CKMB 2.9 ng/mL, Range (0-6.6), Troponin I Less than 0.010 ng/mL, Range (< 0.028), Reference Range , 0.00 - 0.028 ng/mL Negative 0.029 - 0.29 ng/mL , Indeterminate Greater or Equal to 0.3 ng/mL Strongly suggests CA , . (14:15 DHAM) &a-1R&a+25V*p+0X*[id number]*c202B*c15G*c2P*p-0X&a-25V&a+1R Name: Susanne Nagel : 1930 F86 MedRec: [id number] AcctNum: [id number] Prepared: SunJul 13, 2016 01:22 by Interface Page 11 of 12 pMD [facility] EMERGENCY RECORD Comprehensive Metabolic Panel Collection DT: SunJul 12, 2016 13:30, Sodium 140 mmol/L, Range (136-145), Potassium 4.2 mmol/L, Range (3.5-5.1), Chloride 105 mmol/L, Range (98-107), Carbon Dioxide 25 mmol/L, Range (23-31), Anion Gap 14 mmol/L, Range (10-20), *BUN (Urea Nitrogen) 67 - H mg/dL, Range (9.8-20.1), *Creatinine 2.03 - H mg/dL, Range (0.6-1.1), Estimated GFR-MDRD 23 , Reference Range for Estimated GFR: Greater than 90, mL/min/1.73 m2 NOTE: The MDRD equation has not been validated for use, with the elderly (over 70 years of age), women, patients with, serious comorbid condition or persons with extremes of body size, muscle, mass, or nutritional status. , Glucose 88 mg/dL, Range (83-110), Calcium 9.3 mg/dL, Range (7.8-10.44), Bilirubin, Total 0.3 mg/dL, Range (0.2-1.2), Protein, Total 7.1 g/dL, Range (5.8-8.1), NOTE: Plasma values are generally 0.3 to 0.5 g/dL higher than serum values, due to the presence of fibrinogen. , Albumin 3.8 g/dL, Range (3.4-4.8), Globulin 3.3 g/dL, Range (2.4-3.5), Alb/Glob Ratio 1.2 g/dL, Range (1.2-2.2), Alkaline Phosphatase 90 U/L, Range (40-150), AST (SGOT) 28 U/L, Range (5-34), ALT (SGPT) 27 U/L, Range (0-55). (14:15 DHAM) Urine Microscopic Collection DT: SunJul 12, 2016 13:30, RBC/HPF 0-3 HPF, Range (0-3), WBC/HPF 0-3 HPF, Range (0-3), Squamous Epithelial 0-3 HPF, Range (0-3), Bacteria/HPF Rare-Few HPF, Range (None Seen). (14:15 DHAM) Urinalysis w/ Rflx Microscopic Collection DT: SunJul 12, 2016 13:30, Color Yellow , Range (Yellow), Clarity Clear , Range (Clear), Specific [place], Urine 1.015 , Range (1.005-1.030), pH, Urine 6.5 , Range (5.0-9.0), *Leukocyte Small - H , Range (Negative), Nitrite Negative , Range (Negative), Protein, Urine (Dipstick) Trace mg/dL, Range (Neg-Trace), Glucose, Urine (Dipstick) Negative mg/dL, Range (Negative), Ketone, Urine Negative mg/dL, Range (Negative), Urobilinogen 0.2 mg/dL, Range (0.2-1.0), Bilirubin Negative , Range (Negative), *Blood, Urine Trace - H , Range (Negative). (14:15 DHAM) Ochoa: RUSSELL=MD Darius, Shawn LGIB=VIKAS Swan, Maria Teresa LSMI=NESSA Castro Leah &a-1R&a+25V*p+0X*[id number]*c202B*c15G*c2P*p-0X&a-25V&a+1R Name: Susanne Nagel : 1930 F86 MedRec: [id number] AcctNum: [id number] Prepared: Johanna Jul 13, 2016 01:22 by Interface Page 12 of 12 pMGilbert GRIMES
[2016-07-12 16:04] VITALS: BMI 24.1
[2016-07-12] MEDS ORDERED: Ondansetron HCl/PF 4 MG/2 ML Vial IVP PRN (16:53)
[2016-07-12] MEDS ORDERED: Ondansetron ODT 4 MG TAB SL PRN (16:53)
[2016-07-12] MEDS ORDERED: Meclizine HCl 25 MG TAB PO PRN (16:54)
[2016-07-12] MEDS ORDERED: FLU VACC TS2016-17(65YR +) 0.5 ML SYRINGE IM ONE (17:45)
--- NOTE | 2016-07-12 20:22 | RAD ---
PORTABLE CHEST 07/12/16 An AP portable film at 1336 is compared with a 11/09/15 study done at [facility]. The multilumen catheter seen previously on the right has been removed. The heart is normal in size t mars and the lungs are clear. No acute infiltrate or effusion was seen. There are no congestive pagan ges. Trachea is midline. IMPRESSION: No acute thoracic finding. POS: HOME
[2016-07-12] MEDS: Metoprolol Tartrate 25 MG TAB PO SCH (20:30)
--- NOTE | 2016-07-12 20:31 | CT ---
CT OF THE BRAIN WITHOUT CONTRAST 07/12/16 Comparison was made with the 11/09/15 study from [facility]. Diffuse atrophy and mild compensatory dilatation of the ventricles is the same as before. No intracr anial bleeding, extra-axial hematoma, sign of acute stroke or edema was seen. No mass was apparent. There has been no adverse change management coordinator time. The calvarium appears intact. Each IAC is normal in size and symmetrical. There may be a trace of fl uid in one of the mastoid air cells on the right, not seen on the prior study. IMPRESSION: 1. No acute intracranial findings. 2. Question of minimal right mastoiditis. POS: HOME
[2016-07-12] MEDS ORDERED: Lorazepam 0.5 MG TAB PO PRN (21:00)
--- NOTE | 2016-07-13 01:45 | HP ---
DATE OF ADMISSION: 07/12/2016 DATE OF DISCHARGE: 07/13/16 CHIEF COMPLAINT: Dizziness. HISTORY OF PRESENT ILLNESS: 86-year-old female, developed sudden intractable vertigo at home earlier today around 11 this morning, which did not improve prompting EMS to be called; upon arrival at around noon, she did have an episode of emesis and was then transported to [facility]. In the emergency department, patient had a reassuring EKG, CT scan, and chest x- ray and lab work including CBC, CMP and urinalysis were also drawn which were notably stable. Patient was provided intravenous fluid and meclizine; however, she was not able to effectively ambulate in the emergency department due to continued vertigo and thus was admitted for observation. Upon review of the patient at this time, she feels to be stable without active vertigo; states the Meclizine worked well for her. She denies having any pain. She reports her intake and output to be a baseline. She has no active nausea at this time and denies abdominal pain or diarrhea. She has had no fever, chills, or diaphoresis. Patient will be admitted with plans for ambulation with her walker with the aid of either her daughter or the nursing staff to assess for further vertigo. She had not been seen by an ENT physician in the past for similar symptoms. PAST MEDICAL HISTORY: hypertension, hyperlipidemia, diabetes mellitus, gout, cardiac murmur, and chronic kidney disease. PAST SURGICAL HISTORY: Prior bladder sling, tubal ligation, and heart valve replacement in 04/2015. SOCIAL HISTORY: She is a nonsmoker, lives at home with her daughter. FAMILY HISTORY: Noncontributory. ALLERGIES: KEFLEX and BACTRIM. CURRENT MEDICATIONS: Amlodipine 5 mg p.o. daily, allopurinol 100 mg p.o. daily , atorvastatin 20 mg p.o. at bedtime, glipizide XL 2.5 mg p.o. daily, metoprolol 25 mg p.o. b.i.d. REVIEW OF SYSTEMS: GENERAL: Patient denies fever or chills. EAR, NOSE, AND THROAT. She denies sore throat, nasal drainage or congestion. CARDIOVASCULAR: Denies chest pain or palpitations. RESPIRATORY: Denies cough or shortness of breath. GASTROINTESTINAL: Denies abdominal pain, diarrhea, or constipation. She has had some nausea with one episode of emesis. GENITOURINARY: Denies dysuria or hematuria. MUSCULOSKELETAL: Denies joint swelling. DERMATOLOGIC: No rash. NEUROLOGIC: She denies having a headache and dizziness per HPI. LABORATORY DATA: White blood cell count 11.4, hemoglobin and hematocrit was 11.8, 36.6. Sodium 140, potassium 4.2, BUN 67, creatinine is 2.03. Lactic acid 0.7. Cardiac enzymes were normal as on LFTs, glucose is 88. The chest x- ray and brain CT official reads are pending, but not concerning per preliminary readings. PHYSICAL EXAMINATION: VITAL SIGNS: Temperature is 97.5, pulse is 77, respiratory rate is 18, oxygen saturation is 99% on room air, blood pressure is 155/70. GENERAL: Patient is alert and oriented to person, place, time, and situation, in no acute distress. She is thin. FACE: No asymmetry. EYES: Conjunctivae are clear. Extraocular muscles are intact bilaterally with no discharge. HEAD, EYES, EARS, NOSE, AND THROAT: Normocephalic and atraumatic. Throat, Oropharynx is clear with moist mucous membranes. NECK: Supple, with full range of motion. No lymphadenopathy, no meningeal signs. CARDIOVASCULAR: Regular rate and rhythm, normal S1, S2. There is a 2/6 cardiac murmur. RESPIRATORY: Clear to auscultation bilaterally without wheezes, rales, or rhonchi. GASTROINTESTINAL: Soft, nontender to palpation. EXTREMITIES: Warm and well-perfused. No clubbing, cyanosis, or edema. SKIN: She has a well-healed sternotomy scar. NEUROLOGICAL: Exam is currently nonfocal. ASSESSMENT AND PLAN: 1. Vertigo, currently relieved, we will provide meclizine on a p.r.n. basis while patient will ambulate with the assistance of the nursing staff or her daughter and her walker to see if further episodes resume, we will likely discharge patient with p.r.n. meclizine for home. I have discussed with her possible ENT referral versus physical therapy as an outpatient. She will discuss this further with her daughter and may arrange on an outpatient basis as desired. 2. Nausea and vomiting. We will provide Zofran p.r.n. 3. Hypertension. We will resume her home medications including metoprolol and amlodipine. 4. Diabetes mellitus. We will continue home medication glipizide XL and for a repeat CBC and BMP in the morning. 5. Prophylaxis. We will continue patient's home aspirin dose. DISPOSITION: We will plan for patient to discharge home tomorrow pending no further set back and inability to ambulate safely with the use of the [employer] walker and without intractable vertigo. 07/13/16 f/u: patient did well overnight and this AM with no further episodes of vertigo; repeat CBC and BMP are stable; daughter is present whom she lives with ; they both feel she is suitable to return home; the patient has a walker and was formerly followed by [facility] for PT; states she knows what exercises to perform and plans to do so; will d/c the patient at this time with prn Meclizine available to her; encouraged hydration; if symptoms recur then may consider referral to ENT as an outpatient; will also d/c Glipizide XL 2.5 mg dose with plans to check A1c in 3 months in the clinic; will plan for pt to f/u in my clinic next week for f/u visit CORNELIO
[2016-07-13 06:42] LABS: #Basophils 0.1 thou/uL (0.0-0.2); #Eosinphils 0.2 thou/uL (0.0-0.7); #Lymphocytes 3.2 thou/uL (1.20-3.40); #Neutrophils 6.1 thou/uL (1.40-6.50); %Basophils 1.1 % (0.0-1.0); %Monocytes 9.3 % (0.0-10.0); Hematocrit 36.1 % (36.0-47.0); Mean Platelet Volume 6.8 fL (7.4-10.4); Red Blood Cell (RBC) Count 3.81 mill/uL (4.20-5.40); White Blood Cell (WBC) Count 10.7 thou/uL (4.8-10.8)
[2016-07-13 06:52] LABS: Anion Gap 14 mmol/L (10-20); BUN (Urea Nitrogen) 62 mg/dL (9.8-20.1); Calc. Creatinine Clearance 19 mL/min (70-130); Carbon Dioxide 25 mmol/L (23-31); Chloride 110 mmol/L (98-107); Estimated GFR-MDRD 23
[2016-07-13] MEDS: Metoprolol Tartrate 25 MG TAB PO SCH (08:31)
[2016-07-13 08:33] VITALS: BP 133/61
[2016-07-13] MEDS ORDERED: Allopurinol 100 MG TAB PO SCH (09:00)
[2016-07-13] MEDS ORDERED: Multivit, Therapeutic 1 TAB PO SCH (09:00)
[2016-07-13] MEDS ORDERED: Atorvastatin Calcium 10 MG TAB PO SCH (09:00)
[2016-07-13] MEDS ORDERED: GLIPIZIDE 2.5 MG PO SCH (09:00)
[2016-07-13 09:22] VITALS: TEMP 98
== END 2016-07-13 09:45 | disposition home or self-care (01) ==
LOC: BURERS 12:49 → BURMED 14:40
PROVIDERS: ADMIT Family Medicine; ATTEND Family Medicine
DX: R42 Dizziness and giddiness (principal); A08.4 Viral intestinal infection, unspecified; I10 Essential (primary) hypertension; E11.9 Type 2 diabetes mellitus without complications; E78.5 Hyperlipidemia, unspecified; M10.9 Gout, unspecified; Z79.899 Other long term (current) drug therapy; Z79.84 Long term (current) use of oral hypoglycemic drugs
CPT/HCPCS: 36415; 36416; 51701; 70450; 71010; 80048; 80053; 81003; 81015; 82553; 83605; 84484; 85025; 93005; 94760; 96361; 96365; A4216; A4353; G0378; J2765

== ENCOUNTER 2016-08-09 08:09 | Outpatient (CLI) | payer MEDICARE ==
[2016-08-09 09:04] LABS: Anion Gap 14 mmol/L (10-20); BUN (Urea Nitrogen) 64 mg/dL (9.8-20.1); Calc. Creatinine Clearance 0 mL/min (70-130); Calcium 9.2 mg/dL (7.8-10.44); Carbon Dioxide 26 mmol/L (23-31); Chloride 105 mmol/L (98-107); Estimated GFR-MDRD 21
== END 2016-08-09 08:10 | disposition home or self-care (01) ==
LOC: BURLAB 08:09
PROVIDERS: ATTEND Internal Medicine Nephrology
DX: I12.9 Hypertensive chronic kidney disease with stage 1 through stage 4 chronic kidney disease, or unspecified chronic kidney disease (principal); N18.4 Chronic kidney disease, stage 4 (severe); R60.0 Localized edema
CPT/HCPCS: 36415; 80048; 82570; 84156

== ENCOUNTER 2016-11-13 10:27 | Outpatient (CLI) | payer MEDICARE ==
[2016-11-13 11:41] LABS: Albumin 4.1 g/dL (3.4-4.8); Anion Gap 13 mmol/L (10-20); BUN (Urea Nitrogen) 56 mg/dL (9.8-20.1); Calc. Creatinine Clearance 0 mL/min (70-130); Calcium 9.5 mg/dL (7.8-10.44); Carbon Dioxide 25 mmol/L (23-31); Chloride 105 mmol/L (98-107); Estimated GFR-MDRD 19; Glucose 168 mg/dL (83-110); Potassium 4.1 mmol/L (3.5-5.1); Sodium 139 mmol/L (136-145)
[2016-11-13 12:14] LABS: Hemoglobin 11.7 g/dL (12.0-16.0)
[2016-11-13 17:44] LABS: Creatinine, Urine 40.37 mg/dL (47-110)
== END 2016-11-13 10:28 | disposition home or self-care (01) ==
LOC: BURLAB 10:27
PROVIDERS: ATTEND Internal Medicine Nephrology
DX: I12.9 Hypertensive chronic kidney disease with stage 1 through stage 4 chronic kidney disease, or unspecified chronic kidney disease (principal); N18.4 Chronic kidney disease, stage 4 (severe); R80.9 Proteinuria, unspecified; R60.0 Localized edema
CPT/HCPCS: 36415; 80048; 82040; 82570; 84156; 85014; 85018

== ENCOUNTER 2016-12-06 08:04 | Outpatient (CLI) | payer MEDICARE ==
[2016-12-06 08:42] LABS: Anion Gap 17 mmol/L (10-20); BUN (Urea Nitrogen) 53 mg/dL (9.8-20.1); Calc. Creatinine Clearance 0 mL/min (70-130); Calcium 9.3 mg/dL (7.8-10.44); Carbon Dioxide 23 mmol/L (23-31); Chloride 104 mmol/L (98-107); Estimated GFR-MDRD 17; Glucose 278 mg/dL (83-110); Potassium 4.4 mmol/L (3.5-5.1); Sodium 140 mmol/L (136-145)
== END 2016-12-06 08:05 | disposition home or self-care (01) ==
LOC: BURLAB 08:04
PROVIDERS: ATTEND Internal Medicine Nephrology
DX: N18.4 Chronic kidney disease, stage 4 (severe) (principal); R80.9 Proteinuria, unspecified; R60.0 Localized edema; I10 Essential (primary) hypertension
CPT/HCPCS: 36415; 80048; 83970

== ENCOUNTER 2017-02-08 08:09 | Outpatient (CLI) | payer MEDICARE ==
[2017-02-08 09:31] LABS: Anion Gap 16 mmol/L (10-20); BUN (Urea Nitrogen) 71 mg/dL (9.8-20.1); Calc. Creatinine Clearance 0 mL/min (70-130); Calcium 9.8 mg/dL (7.8-10.44); Carbon Dioxide 24 mmol/L (23-31); Chloride 105 mmol/L (98-107); Estimated GFR-MDRD 17; Glucose 187 mg/dL (83-110); Potassium 4.1 mmol/L (3.5-5.1); Sodium 141 mmol/L (136-145)
[2017-02-08 10:00] LABS: Hemoglobin 11.7 g/dL (12.0-16.0)
[2017-02-08 17:46] LABS: Phosphorus 4.3 mg/dL (2.3-4.7)
== END 2017-02-08 08:10 | disposition home or self-care (01) ==
LOC: BURLAB 08:09
PROVIDERS: ATTEND Internal Medicine Nephrology
DX: I12.9 Hypertensive chronic kidney disease with stage 1 through stage 4 chronic kidney disease, or unspecified chronic kidney disease (principal); N18.4 Chronic kidney disease, stage 4 (severe)
CPT/HCPCS: 36415; 80048; 84100; 85014; 85018

== ENCOUNTER 2017-03-07 08:03 | Outpatient (CLI) | payer MEDICARE ==
[2017-03-07 09:27] LABS: Anion Gap 18 mmol/L (10-20); BUN (Urea Nitrogen) 69 mg/dL (9.8-20.1); Calc. Creatinine Clearance 0 mL/min (70-130); Calcium 9.3 mg/dL (7.8-10.44); Carbon Dioxide 24 mmol/L (23-31); Chloride 104 mmol/L (98-107); Estimated GFR-MDRD 15; Glucose 201 mg/dL (83-110); Potassium 4.8 mmol/L (3.5-5.1); Sodium 141 mmol/L (136-145)
== END 2017-03-07 08:04 | disposition home or self-care (01) ==
LOC: BURLAB 08:03
PROVIDERS: ATTEND Internal Medicine Nephrology
DX: I12.9 Hypertensive chronic kidney disease with stage 1 through stage 4 chronic kidney disease, or unspecified chronic kidney disease (principal); N18.9 Chronic kidney disease, unspecified; R60.0 Localized edema; R80.9 Proteinuria, unspecified
CPT/HCPCS: 36415; 80048; 83970

== ENCOUNTER 2018-01-21 10:02 | Emergency (ER) | payer MEDICARE ==
[2018-01-21 10:56] LABS: #Basophils 0.1 thou/uL (0.0-0.2); #Eosinphils 0.1 thou/uL (0.0-0.7); #Lymphocytes 1.9 thou/uL (1.20-3.40); #Monocytes 1.6 thou/uL (0.11-0.59); #Neutrophils 13.1 thou/uL (1.40-6.50); %Basophils 0.5 % (0.0-1.0); %Eosinophils 0.6 % (0.0-10.0); %Lymphocytes 11.1 % (21.0-51.0); %Monocytes 9.7 % (0.0-10.0); %Neutrophils 78.1 % (42.0-75.0); Hemoglobin 6.9 g/dL (12.0-16.0); Mean Corpuscular HGB CONC 34.8 g/dL (32.0-36.0); Mean Corpuscular Hemoglobin 26.5 pg (27.0-31.0); Mean Corpuscular Volume 76.1 fL (78.0-98.0); Mean Platelet Volume 5.5 fL (7.4-10.4); Platelet Count 261 thou/uL (130-400); RBC Distribution Width 14.5 % (11.5-14.5); Red Blood Cell (RBC) Count 2.61 mill/uL (4.20-5.40); White Blood Cell (WBC) Count 16.8 thou/uL (4.8-10.8)
[2018-01-21 11:14] LABS: ALT (SGPT) 19 U/L (8-55); AST (SGOT) 25 U/L (5-34); Albumin 3.2 g/dL (3.4-4.8); Alkaline Phosphatase 89 U/L (40-150); Anion Gap 15 mmol/L (10-20); BUN (Urea Nitrogen) 51 mg/dL (9.8-20.1); Bilirubin, Total 0.3 mg/dL (0.2-1.2); Calc. Creatinine Clearance 0 mL/min (70-130); Calcium 9.9 mg/dL (7.8-10.44); Carbon Dioxide 25 mmol/L (23-31); Chloride 103 mmol/L (98-107); Estimated GFR-MDRD 19; Globulin 3.4 g/dL (2.4-3.5); Glucose 202 mg/dL (83-110); Potassium 3.8 mmol/L (3.5-5.1); Protein, Total 6.6 g/dL (6.0-8.3); Sodium 139 mmol/L (136-145)
[2018-01-21 11:15] LABS: CKMB 0.6 ng/mL (0-6.6); Troponin I 0.021 ng/mL (< 0.028)
[2018-01-21] MEDS ORDERED: Pantoprazole 40 MG VIAL ONE (11:46)
--- NOTE | 2018-01-21 15:50 | RAD ---
CHEST 2 VIEWS: DATE: 01/21/18. COMPARISON: Comparison is made with a 07/12/16 study. FINDINGS: Mild cardiomegaly is present with no congestive change or pleural effusion. Slight basilar haziness is probably due to the overlying soft tissues. The lungs are mildly hyperexpanded but clear. The tr achea is midline. Median sternotomy sutures are noted from prior surgery. IMPRESSION: Mild cardiomegaly and mild hyperinflation without any definite acute change. POS: HOME
== END 2018-01-21 13:05 | disposition short-term general hospital (02) ==
LOC: BURERS 10:02
DX: K92.2 Gastrointestinal hemorrhage, unspecified (principal); D64.9 Anemia, unspecified; E11.9 Type 2 diabetes mellitus without complications; E78.5 Hyperlipidemia, unspecified; I10 Essential (primary) hypertension; Z79.82 Long term (current) use of aspirin; Z79.899 Other long term (current) drug therapy
CPT/HCPCS: 71046; 80053; 82274; 82553; 83880; 84484; 85025; 93005; 96365; C9113

== ENCOUNTER 2018-02-07 14:05 | Inpatient (IN) | payer MEDICARE ==
[2018-02-07] MEDS ORDERED: Dextrose 50% Abboject 50 ML SYRINGE SLOW IVP PRN (16:32)
[2018-02-07] MEDS ORDERED: Dextrose 5% in Water 1,000 ML IV PRN (16:32)
[2018-02-07] MEDS: Dronedarone HCl 400 MG TAB PO SCH (16:45)
[2018-02-07] MEDS: Mometasone/Formoterol 60 PUFF AER INH SCH (18:12)
[2018-02-07] MEDS ORDERED: HumaLOG 300 UNITS/3 ML VIAL SC PRN (18:38)
[2018-02-07] MEDS: Amlodipine 10 MG TAB PO SCH (21:05)
[2018-02-07] MEDS: Metoprolol Tartrate 25 MG TAB PO SCH (21:06)
[2018-02-07] MEDS: Heparin 5,000 UNITS/ML VIAL SC SCH (21:08)
[2018-02-08] MEDS: Meropenem 500 MG in Sodium Chloride 0.9% 100 ML IVPB SCH ×2 (01:23→13:36)
[2018-02-08] MEDS: Nystatin Powder 15 GM BOT TOP PRN ×2 (01:27→20:32)
[2018-02-08] MEDS ORDERED: Meropenem 500 MG VIAL IVPB SCH (02:00)
[2018-02-08 05:49] LABS: #Basophils 0.1 thou/uL (0.0-0.2); #Lymphocytes 1.4 thou/uL (1.20-3.40); #Monocytes 0.9 thou/uL (0.11-0.59); #Neutrophils 9.6 thou/uL (1.40-6.50); %Basophils 0.8 % (0.0-1.0); %Eosinophils 0.2 % (0.0-10.0); %Lymphocytes 11.5 % (21.0-51.0); %Monocytes 7.7 % (0.0-10.0); %Neutrophils 79.8 % (42.0-75.0); Hemoglobin 11.1 g/dL (12.0-16.0); Mean Corpuscular HGB CONC 32.3 g/dL (32.0-36.0); Mean Corpuscular Hemoglobin 27.1 pg (27.0-31.0); Mean Corpuscular Volume 83.7 fL (78.0-98.0); Platelet Count 157 thou/uL (130-400); RBC Distribution Width 15.7 % (11.5-14.5); Red Blood Cell (RBC) Count 4.09 mill/uL (4.20-5.40)
[2018-02-08 05:57] LABS: ALT (SGPT) 12 U/L (8-55); AST (SGOT) 14 U/L (5-34); Alkaline Phosphatase 63 U/L (40-150); Anion Gap 15 mmol/L (10-20); BUN (Urea Nitrogen) 68 mg/dL (9.8-20.1); Bilirubin, Total 0.5 mg/dL (0.2-1.2); Calc. Creatinine Clearance 16 mL/min (70-130); Calcium 8.9 mg/dL (7.8-10.44); Carbon Dioxide 22 mmol/L (23-31); Chloride 107 mmol/L (98-107); Estimated GFR-MDRD 18; Globulin 2.7 g/dL (2.4-3.5); Glucose 118 mg/dL (83-110); Potassium 4.2 mmol/L (3.5-5.1); Protein, Total 5.7 g/dL (6.0-8.3); Sodium 140 mmol/L (136-145)
[2018-02-08] MEDS: Mometasone/Formoterol 60 PUFF AER INH SCH ×2 (06:22→17:54)
[2018-02-08] MEDS: Dronedarone HCl 400 MG TAB PO SCH ×2 (08:44→16:51)
[2018-02-08] MEDS: Allopurinol 100 MG TAB PO SCH (08:45)
[2018-02-08] MEDS: Metoprolol Tartrate 25 MG TAB PO SCH ×2 (08:45→20:25)
[2018-02-08] MEDS: Atorvastatin Calcium 10 MG TAB PO SCH (08:45)
[2018-02-08] MEDS: predniSONE 10 MG TAB PO SCH (08:46)
[2018-02-08] MEDS: Heparin 5,000 UNITS/ML VIAL SC SCH ×2 (08:46→20:24)
[2018-02-08] MEDS ORDERED: Sodium Chloride 0.9% 10 ML ONE (12:33)
[2018-02-08] MEDS: Amlodipine 10 MG TAB PO SCH (20:25)
[2018-02-09] MEDS: Meropenem 500 MG in Sodium Chloride 0.9% 100 ML IVPB SCH ×2 (01:58→14:09)
[2018-02-09] MEDS: Mometasone/Formoterol 60 PUFF AER INH SCH ×2 (06:37→19:24)
[2018-02-09] MEDS: Heparin 5,000 UNITS/ML VIAL SC SCH ×2 (07:59→20:08)
[2018-02-09] MEDS: Dronedarone HCl 400 MG TAB PO SCH ×2 (08:15→16:50)
[2018-02-09] MEDS: predniSONE 10 MG TAB PO SCH (08:16)
[2018-02-09] MEDS: Allopurinol 100 MG TAB PO SCH (08:17)
[2018-02-09] MEDS: Atorvastatin Calcium 10 MG TAB PO SCH (08:17)
[2018-02-09] MEDS: Metoprolol Tartrate 25 MG TAB PO SCH ×2 (08:18→20:06)
[2018-02-09] MEDS: Amlodipine 10 MG TAB PO SCH (20:06)
[2018-02-09] MEDS: Nystatin Powder 15 GM BOT TOP PRN (20:17)
[2018-02-10] MEDS: Meropenem 500 MG in Sodium Chloride 0.9% 100 ML IVPB SCH ×2 (02:11→13:54)
[2018-02-10] MEDS: Mometasone/Formoterol 60 PUFF AER INH SCH ×2 (06:09→18:35)
[2018-02-10] MEDS ORDERED: Heparin 5,000 UNITS/ML VIAL ONE ×2 (08:17→20:24)
[2018-02-10] MEDS: predniSONE 10 MG TAB PO SCH (08:49)
[2018-02-10] MEDS: Dronedarone HCl 400 MG TAB PO SCH ×2 (08:49→17:17)
[2018-02-10] MEDS: Atorvastatin Calcium 10 MG TAB PO SCH (08:50)
[2018-02-10] MEDS: Metoprolol Tartrate 25 MG TAB PO SCH ×2 (08:51→20:48)
[2018-02-10] MEDS: Allopurinol 100 MG TAB PO SCH (08:51)
[2018-02-10] MEDS: Heparin 5,000 UNITS/ML VIAL SC SCH ×2 (08:53→20:37)
[2018-02-10] MEDS: Amlodipine 10 MG TAB PO SCH (20:34)
[2018-02-11] MEDS: Meropenem 500 MG in Sodium Chloride 0.9% 100 ML IVPB SCH ×2 (01:51→13:42)
[2018-02-11] MEDS: Mometasone/Formoterol 60 PUFF AER INH SCH ×2 (06:19→18:32)
[2018-02-11] MEDS ORDERED: Heparin 5,000 UNITS/ML VIAL ONE ×2 (08:28→20:26)
[2018-02-11] MEDS: Allopurinol 100 MG TAB PO SCH (08:39)
[2018-02-11] MEDS: Dronedarone HCl 400 MG TAB PO SCH ×2 (08:40→17:11)
[2018-02-11] MEDS: Atorvastatin Calcium 10 MG TAB PO SCH (08:40)
[2018-02-11] MEDS: Metoprolol Tartrate 25 MG TAB PO SCH ×2 (08:41→20:35)
[2018-02-11] MEDS: predniSONE 10 MG TAB PO SCH (08:41)
[2018-02-11] MEDS: Heparin 5,000 UNITS/ML VIAL SC SCH ×2 (08:43→20:46)
[2018-02-11 08:48] LABS: #Basophils 0.1 thou/uL (0.0-0.2); #Eosinphils 0.2 thou/uL (0.0-0.7); #Lymphocytes 2.3 thou/uL (1.20-3.40); #Monocytes 1.3 thou/uL (0.11-0.59); #Neutrophils 11.6 thou/uL (1.40-6.50); %Basophils 0.3 % (0.0-1.0); %Eosinophils 1.2 % (0.0-10.0); %Lymphocytes 14.8 % (21.0-51.0); %Monocytes 8.5 % (0.0-10.0); %Neutrophils 75.1 % (42.0-75.0); Hemoglobin 10.1 g/dL (12.0-16.0); Mean Corpuscular HGB CONC 31.4 g/dL (32.0-36.0); Mean Corpuscular Hemoglobin 26.6 pg (27.0-31.0); Mean Corpuscular Volume 84.8 fL (78.0-98.0); Mean Platelet Volume 10.7 fL (7.4-10.4); Platelet Count 132 thou/uL (130-400); RBC Distribution Width 15.9 % (11.5-14.5); White Blood Cell (WBC) Count 15.4 thou/uL (4.8-10.8)
[2018-02-11 09:06] LABS: ALT (SGPT) 15 U/L (8-55); AST (SGOT) 16 U/L (5-34); Albumin 3.2 g/dL (3.4-4.8); Alkaline Phosphatase 63 U/L (40-150); Anion Gap 16 mmol/L (10-20); BUN (Urea Nitrogen) 72 mg/dL (9.8-20.1); Bilirubin, Total 0.7 mg/dL (0.2-1.2); Calc. Creatinine Clearance 18 mL/min (70-130); Calcium 8.7 mg/dL (7.8-10.44); Carbon Dioxide 23 mmol/L (23-31); Chloride 111 mmol/L (98-107); Estimated GFR-MDRD 19; Globulin 2.4 g/dL (2.4-3.5); Glucose 130 mg/dL (83-110); Potassium 4.9 mmol/L (3.5-5.1); Protein, Total 5.6 g/dL (6.0-8.3); Sodium 145 mmol/L (136-145)
[2018-02-11 09:07] LABS: INR-International Normal Ratio 1.1; PTT 43.4 SEC (22.9-36.1); Prothrombin Time 14.5 SEC (12.0-14.7)
[2018-02-11] MEDS: Amlodipine 10 MG TAB PO SCH (20:36)
[2018-02-12] MEDS: Meropenem 500 MG in Sodium Chloride 0.9% 100 ML IVPB SCH ×2 (01:50→14:23)
[2018-02-12] MEDS: Mometasone/Formoterol 60 PUFF AER INH SCH ×2 (05:56→18:22)
[2018-02-12] MEDS: Atorvastatin Calcium 10 MG TAB PO SCH (08:06)
[2018-02-12] MEDS: Dronedarone HCl 400 MG TAB PO SCH ×2 (08:06→17:30)
[2018-02-12] MEDS: Allopurinol 100 MG TAB PO SCH (08:07)
[2018-02-12] MEDS: predniSONE 10 MG TAB PO SCH (08:07)
[2018-02-12] MEDS: Metoprolol Tartrate 25 MG TAB PO SCH ×2 (08:07→20:19)
[2018-02-12] MEDS ORDERED: Heparin 5,000 UNITS/ML VIAL ONE ×2 (09:11→20:03)
[2018-02-12] MEDS: Heparin 5,000 UNITS/ML VIAL SC SCH ×2 (09:16→20:35)
[2018-02-12] MEDS: Amlodipine 10 MG TAB PO SCH (20:17)
[2018-02-13] MEDS: Meropenem 500 MG in Sodium Chloride 0.9% 100 ML IVPB SCH (01:54)
[2018-02-13] MEDS: Mometasone/Formoterol 60 PUFF AER INH SCH ×2 (06:05→18:50)
[2018-02-13 07:43] LABS: #Basophils 0.1 thou/uL (0.0-0.2); #Eosinphils 0.3 thou/uL (0.0-0.7); #Lymphocytes 2.3 thou/uL (1.20-3.40); #Monocytes 1.1 thou/uL (0.11-0.59); #Neutrophils 13.1 thou/uL (1.40-6.50); %Basophils 0.5 % (0.0-1.0); %Eosinophils 1.7 % (0.0-10.0); %Lymphocytes 13.7 % (21.0-51.0); %Monocytes 6.6 % (0.0-10.0); %Neutrophils 77.6 % (42.0-75.0); Hemoglobin 9.3 g/dL (12.0-16.0); Mean Corpuscular HGB CONC 31.5 g/dL (32.0-36.0); Mean Corpuscular Hemoglobin 26.8 pg (27.0-31.0); Mean Corpuscular Volume 85.2 fL (78.0-98.0); Mean Platelet Volume 10.6 fL (7.4-10.4); Platelet Count 131 thou/uL (130-400); RBC Distribution Width 16.4 % (11.5-14.5); Red Blood Cell (RBC) Count 3.46 mill/uL (4.20-5.40); White Blood Cell (WBC) Count 16.9 thou/uL (4.8-10.8)
[2018-02-13 08:02] LABS: ALT (SGPT) 18 U/L (8-55); AST (SGOT) 20 U/L (5-34); Albumin 3.2 g/dL (3.4-4.8); Alkaline Phosphatase 63 U/L (40-150); Anion Gap 15 mmol/L (10-20); BUN (Urea Nitrogen) 72 mg/dL (9.8-20.1); Bilirubin, Total 0.6 mg/dL (0.2-1.2); Calc. Creatinine Clearance 19 mL/min (70-130); Calcium 8.6 mg/dL (7.8-10.44); Carbon Dioxide 21 mmol/L (23-31); Chloride 112 mmol/L (98-107); Estimated GFR-MDRD 21; Globulin 2.4 g/dL (2.4-3.5); Glucose 75 mg/dL (83-110); Potassium 4.4 mmol/L (3.5-5.1); Protein, Total 5.6 g/dL (6.0-8.3); Sodium 144 mmol/L (136-145)
[2018-02-13] MEDS: Metoprolol Tartrate 25 MG TAB PO SCH ×2 (08:23→20:33)
[2018-02-13] MEDS: Allopurinol 100 MG TAB PO SCH (08:24)
[2018-02-13] MEDS: predniSONE 10 MG TAB PO SCH (08:24)
[2018-02-13] MEDS: Dronedarone HCl 400 MG TAB PO SCH ×2 (08:24→17:46)
[2018-02-13] MEDS: Atorvastatin Calcium 10 MG TAB PO SCH (08:24)
[2018-02-13] MEDS: Heparin 5,000 UNITS/ML VIAL SC SCH ×2 (08:27→20:32)
--- NOTE | 2018-02-13 18:44 | RAD ---
CHEST TWO VIEWS: 02/13/18 Comparison is made with an 02/02/18 study from [facility]. There is less infiltration in the right mid to lower lung than before. There is some minor residual. No major lobar consolidation or large effusion was seen. There is no congestive change. A left centra l line has been added since last time whose tip is in the vicinity of the distal superior vena cava. The heart is unchanged in size. IMPRESSION: Overall improvement in the appearance of the chest since 02/02. Some minor residual remains on the rig ht. POS: HOME
[2018-02-13] MEDS: Amlodipine 10 MG TAB PO SCH (20:33)
[2018-02-13] MEDS: Nystatin Powder 15 GM BOT TOP PRN (20:36)
[2018-02-14] MEDS: Mometasone/Formoterol 60 PUFF AER INH SCH ×2 (06:20→18:25)
[2018-02-14] MEDS: Atorvastatin Calcium 10 MG TAB PO SCH (08:20)
[2018-02-14] MEDS: Metoprolol Tartrate 25 MG TAB PO SCH ×2 (08:21→20:34)
[2018-02-14] MEDS: Dronedarone HCl 400 MG TAB PO SCH ×2 (08:22→17:32)
[2018-02-14] MEDS: cefTRIAXone\\ROCEPHIN 1 GM in Sodium Chloride 0.9% 100 ML IVPB SCH (08:22)
[2018-02-14] MEDS: Allopurinol 100 MG TAB PO SCH (08:22)
[2018-02-14] MEDS: Amlodipine 10 MG TAB PO SCH (20:34)
[2018-02-14] MEDS: Nystatin Powder 15 GM BOT TOP PRN (20:43)
[2018-02-15 05:41] LABS: ALT (SGPT) 14 U/L (8-55); AST (SGOT) 14 U/L (5-34); Albumin 2.8 g/dL (3.4-4.8); Alkaline Phosphatase 49 U/L (40-150); Anion Gap 15 mmol/L (10-20); BUN (Urea Nitrogen) 71 mg/dL (9.8-20.1); Bilirubin, Total 0.5 mg/dL (0.2-1.2); Calc. Creatinine Clearance 17 mL/min (70-130); Calcium 8.5 mg/dL (7.8-10.44); Carbon Dioxide 21 mmol/L (23-31); Chloride 113 mmol/L (98-107); Estimated GFR-MDRD 18; Globulin 1.9 g/dL (2.4-3.5); Glucose 106 mg/dL (83-110); Potassium 4.5 mmol/L (3.5-5.1); Protein, Total 4.7 g/dL (6.0-8.3); Sodium 144 mmol/L (136-145)
[2018-02-15 05:45] LABS: #Basophils 0.1 thou/uL (0.0-0.2); #Eosinphils 0.4 thou/uL (0.0-0.7); #Lymphocytes 2.4 thou/uL (1.20-3.40); #Monocytes 1.2 thou/uL (0.11-0.59); #Neutrophils 12.5 thou/uL (1.40-6.50); %Basophils 0.6 % (0.0-1.0); %Eosinophils 2.2 % (0.0-10.0); %Lymphocytes 14.6 % (21.0-51.0); %Monocytes 7.1 % (0.0-10.0); %Neutrophils 75.5 % (42.0-75.0); Anisocytosis SLIGHT = 6-15 cells (100X) (0-5/hpf); Eosinophils 2 % (0-10); Hemoglobin 6.2 g/dL (12.0-16.0); Hypochromia SLIGHT = 6-15 cells (100X) (0-5/hpf); Large Platelets SLIGHT; Lymphocytes 20 % (21-51); MDiff Complete? YES; Mean Corpuscular HGB CONC 32.2 g/dL (32.0-36.0); Mean Corpuscular Hemoglobin 27.5 pg (27.0-31.0); Mean Corpuscular Volume 85.2 fL (78.0-98.0); Mean Platelet Volume 11.4 fL (7.4-10.4); Monocytes 4 % (0-10); Neutrophil 73 % (42-75); Ovalocytes SLIGHT = 2-5 cells (100X) (0-1/hpf); PLT Morphology Comment Appears Decreased; Platelet Count 115 thou/uL (130-400); RBC Distribution Width 16.4 % (11.5-14.5); Red Blood Cell (RBC) Count 2.26 mill/uL (4.20-5.40); White Blood Cell (WBC) Count 16.5 thou/uL (4.8-10.8)
[2018-02-15] MEDS: Mometasone/Formoterol 60 PUFF AER INH SCH ×2 (05:57→18:35)
[2018-02-15] MEDS: Dronedarone HCl 400 MG TAB PO SCH ×2 (08:49→17:25)
[2018-02-15] MEDS: Allopurinol 100 MG TAB PO SCH (08:49)
[2018-02-15] MEDS: Atorvastatin Calcium 10 MG TAB PO SCH (08:50)
[2018-02-15] MEDS: Metoprolol Tartrate 25 MG TAB PO SCH ×2 (08:50→21:18)
[2018-02-15] MEDS ORDERED: Acetaminophen 325 MG TAB PO SCH (09:00)
[2018-02-15] MEDS ORDERED: diphenhydrAMINE 25 MG CAP PO SCH (09:00)
[2018-02-15] MEDS: cefTRIAXone\\ROCEPHIN 1 GM in Sodium Chloride 0.9% 100 ML IVPB SCH (09:08)
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
[2018-02-15 18:20] LABS: #Basophils 0.1 thou/uL (0.0-0.2); #Eosinphils 0.3 thou/uL (0.0-0.7); #Neutrophils 13.3 thou/uL (1.40-6.50); %Basophils 0.9 % (0.0-1.0); %Eosinophils 1.9 % (0.0-10.0); %Lymphocytes 11.8 % (21.0-51.0); %Neutrophils 79.5 % (42.0-75.0); Anisocytosis SLIGHT = 6-15 cells (100X) (0-5/hpf); Hemoglobin 9.5 g/dL (12.0-16.0); Large Platelets SLIGHT; MDiff Complete? YES; Mean Corpuscular HGB CONC 32.8 g/dL (32.0-36.0); Mean Corpuscular Hemoglobin 28.9 pg (27.0-31.0); Mean Corpuscular Volume 87.9 fL (78.0-98.0); Platelet Count 99 thou/uL (130-400); RBC Distribution Width 15.8 % (11.5-14.5); Red Blood Cell (RBC) Count 3.29 mill/uL (4.20-5.40); White Blood Cell (WBC) Count 16.8 thou/uL (4.8-10.8)
[2018-02-15] MEDS: Acetaminophen 325 MG TAB PO PRN (19:55)
[2018-02-15] MEDS: Amlodipine 10 MG TAB PO SCH (21:18)
[2018-02-16 05:13] LABS: #Basophils 0.1 thou/uL (0.0-0.2); #Eosinphils 0.3 thou/uL (0.0-0.7); #Lymphocytes 1.6 thou/uL (1.20-3.40); #Neutrophils 11.5 thou/uL (1.40-6.50); %Basophils 0.7 % (0.0-1.0); %Eosinophils 2.4 % (0.0-10.0); %Lymphocytes 11.3 % (21.0-51.0); %Monocytes 6.6 % (0.0-10.0); %Neutrophils 79.1 % (42.0-75.0); Anisocytosis SLIGHT = 6-15 cells (100X) (0-5/hpf); Basophilic Stippling SLIGHT = 1-2 cells (100X) (None Seen); Large Platelets SLIGHT; MDiff Complete? YES; Mean Corpuscular HGB CONC 32.9 g/dL (32.0-36.0); Mean Corpuscular Hemoglobin 28.2 pg (27.0-31.0); Mean Corpuscular Volume 85.7 fL (78.0-98.0); Mean Platelet Volume 12.8 fL (7.4-10.4); PLT Morphology Comment Appears Decreased; Platelet Count 90 thou/uL (130-400); Polychromasia SLIGHT = 2-3 cells (100X) (0-2/hpf); Red Blood Cell (RBC) Count 3.19 mill/uL (4.20-5.40); White Blood Cell (WBC) Count 14.5 thou/uL (4.8-10.8)
[2018-02-16] MEDS: Mometasone/Formoterol 60 PUFF AER INH SCH ×2 (06:17→18:31)
[2018-02-16] MEDS: Acetaminophen 325 MG TAB PO PRN ×4 (06:37→23:25)
[2018-02-16] MEDS: Atorvastatin Calcium 10 MG TAB PO SCH (08:14)
[2018-02-16] MEDS: Dronedarone HCl 400 MG TAB PO SCH ×2 (08:14→17:57)
[2018-02-16] MEDS: Metoprolol Tartrate 25 MG TAB PO SCH ×2 (08:15→20:56)
[2018-02-16] MEDS: cefTRIAXone\\ROCEPHIN 1 GM in Sodium Chloride 0.9% 100 ML IVPB SCH (08:15)
[2018-02-16] MEDS: Allopurinol 100 MG TAB PO SCH (08:15)
[2018-02-16] MEDS: Amlodipine 10 MG TAB PO SCH (20:56)
[2018-02-17] MEDS: Acetaminophen 325 MG TAB PO PRN ×4 (03:24→20:37)
[2018-02-17] MEDS: Mometasone/Formoterol 60 PUFF AER INH SCH ×2 (06:06→18:07)
[2018-02-17 06:13] LABS: Anisocytosis SLIGHT = 6-15 cells (100X) (0-5/hpf); Eosinophils 2 % (0-10); Hemoglobin 8.5 g/dL (12.0-16.0); Large Platelets SLIGHT; Lymphocytes 11 % (21-51); MDiff Complete? YES; Mean Corpuscular Volume 87.5 fL (78.0-98.0); Mean Platelet Volume 11.9 fL (7.4-10.4); Monocytes 3 % (0-10); Neutrophil 84 % (42-75); Ovalocytes SLIGHT = 2-5 cells (100X) (0-1/hpf); PLT Morphology Comment Appears Decreased; Platelet Count 91 thou/uL (130-400); Polychromasia SLIGHT = 2-3 cells (100X) (0-2/hpf); Red Blood Cell (RBC) Count 3.04 mill/uL (4.20-5.40); White Blood Cell (WBC) Count 13.9 thou/uL (4.8-10.8)
[2018-02-17] MEDS: Atorvastatin Calcium 10 MG TAB PO SCH (08:10)
[2018-02-17] MEDS: Allopurinol 100 MG TAB PO SCH (08:10)
[2018-02-17] MEDS: Metoprolol Tartrate 25 MG TAB PO SCH ×2 (08:10→20:38)
[2018-02-17] MEDS: Dronedarone HCl 400 MG TAB PO SCH ×2 (08:10→18:05)
[2018-02-17] MEDS: cefTRIAXone\\ROCEPHIN 1 GM in Sodium Chloride 0.9% 100 ML IVPB SCH (08:13)
[2018-02-17] MEDS: Amlodipine 10 MG TAB PO SCH (20:37)
[2018-02-18] MEDS: Acetaminophen 325 MG TAB PO PRN ×6 (00:30→21:16)
[2018-02-18 05:16] LABS: Hemoglobin 8.4 g/dL (12.0-16.0); Mean Corpuscular HGB CONC 33.2 g/dL (32.0-36.0); Mean Corpuscular Hemoglobin 28.8 pg (27.0-31.0); Mean Corpuscular Volume 86.8 fL (78.0-98.0); Platelet Count 90 thou/uL (130-400); RBC Distribution Width 15.7 % (11.5-14.5); Red Blood Cell (RBC) Count 2.92 mill/uL (4.20-5.40)
[2018-02-18 05:17] LABS: MDiff Complete? YES; Manual Diff?? YES
[2018-02-18 05:18] LABS: Anisocytosis SLIGHT = 6-15 cells (100X) (0-5/hpf); Band 1 % (5-11); Eosinophils 2 % (0-10); Lymphocytes 12 % (21-51); Monocytes 7 % (0-10); Neutrophil 78 % (42-75)
[2018-02-18 05:19] LABS: Basophilic Stippling SLIGHT = 1-2 cells (100X) (None Seen); Ovalocytes SLIGHT = 2-5 cells (100X) (0-1/hpf); Polychromasia SLIGHT = 2-3 cells (100X) (0-2/hpf)
[2018-02-18 05:20] LABS: Large Platelets SLIGHT
[2018-02-18 05:21] LABS: PLT Morphology Comment Appears Decreased
[2018-02-18] MEDS: Mometasone/Formoterol 60 PUFF AER INH SCH ×2 (06:05→17:57)
[2018-02-18] MEDS: Atorvastatin Calcium 10 MG TAB PO SCH (08:15)
[2018-02-18] MEDS: cefTRIAXone\\ROCEPHIN 1 GM in Sodium Chloride 0.9% 100 ML IVPB SCH (08:15)
[2018-02-18] MEDS: Dronedarone HCl 400 MG TAB PO SCH ×2 (08:15→17:54)
[2018-02-18] MEDS: Allopurinol 100 MG TAB PO SCH (08:15)
[2018-02-18] MEDS: Metoprolol Tartrate 25 MG TAB PO SCH ×2 (08:16→21:17)
[2018-02-18 09:57] VITALS: BMI 27.8
[2018-02-18] MEDS: Amlodipine 10 MG TAB PO SCH (21:17)
[2018-02-19] MEDS: Acetaminophen 325 MG TAB PO PRN ×6 (01:12→21:22)
[2018-02-19 05:28] LABS: Anisocytosis SLIGHT = 6-15 cells (100X) (0-5/hpf); Eosinophils 3 % (0-10); Hemoglobin 8.4 g/dL (12.0-16.0); Hypochromia SLIGHT = 6-15 cells (100X) (0-5/hpf); Lymphocytes 11 % (21-51); MDiff Complete? YES; Mean Corpuscular Hemoglobin 28.3 pg (27.0-31.0); Mean Corpuscular Volume 88.6 fL (78.0-98.0); Mean Platelet Volume 10.6 fL (7.4-10.4); Monocytes 6 % (0-10); Neutrophil 79 % (42-75); Ovalocytes SLIGHT = 2-5 cells (100X) (0-1/hpf); PLT Morphology Comment Appears Decreased; Platelet Count 96 thou/uL (130-400); RBC Distribution Width 16.8 % (11.5-14.5); Red Blood Cell (RBC) Count 2.96 mill/uL (4.20-5.40); White Blood Cell (WBC) Count 11.3 thou/uL (4.8-10.8)
[2018-02-19 05:44] LABS: ALT (SGPT) 13 U/L (8-55); AST (SGOT) 14 U/L (5-34); Albumin 2.8 g/dL (3.4-4.8); Alkaline Phosphatase 62 U/L (40-150); Anion Gap 13 mmol/L (10-20); BUN (Urea Nitrogen) 55 mg/dL (9.8-20.1); Bilirubin, Total 0.7 mg/dL (0.2-1.2); Calc. Creatinine Clearance 18 mL/min (70-130); Calcium 8.3 mg/dL (7.8-10.44); Carbon Dioxide 19 mmol/L (23-31); Chloride 114 mmol/L (98-107); Estimated GFR-MDRD 19; Globulin 2.4 g/dL (2.4-3.5); Glucose 89 mg/dL (83-110); Potassium 3.9 mmol/L (3.5-5.1); Protein, Total 5.2 g/dL (6.0-8.3); Sodium 142 mmol/L (136-145)
[2018-02-19] MEDS: Mometasone/Formoterol 60 PUFF AER INH SCH ×2 (06:05→17:25)
[2018-02-19] MEDS: Dronedarone HCl 400 MG TAB PO SCH ×2 (09:08→17:23)
[2018-02-19] MEDS: cefTRIAXone\\ROCEPHIN 1 GM in Sodium Chloride 0.9% 100 ML IVPB SCH (09:08)
[2018-02-19] MEDS: Atorvastatin Calcium 10 MG TAB PO SCH (09:08)
[2018-02-19] MEDS: Metoprolol Tartrate 25 MG TAB PO SCH ×2 (09:08→21:22)
[2018-02-19] MEDS: Allopurinol 100 MG TAB PO SCH (09:08)
[2018-02-19] MEDS: Amlodipine 10 MG TAB PO SCH (21:22)
[2018-02-20] MEDS: Acetaminophen 325 MG TAB PO PRN ×4 (01:31→21:07)
[2018-02-20 05:30] LABS: #Basophils 0.1 thou/uL (0.0-0.2); #Eosinphils 0.3 thou/uL (0.0-0.7); #Lymphocytes 1.2 thou/uL (1.20-3.40); #Monocytes 0.8 thou/uL (0.11-0.59); #Neutrophils 8.2 thou/uL (1.40-6.50); %Basophils 1.2 % (0.0-1.0); %Eosinophils 3.1 % (0.0-10.0); %Lymphocytes 11.6 % (21.0-51.0); %Monocytes 7.2 % (0.0-10.0); %Neutrophils 76.9 % (42.0-75.0); Anisocytosis SLIGHT = 6-15 cells (100X) (0-5/hpf); Basophilic Stippling SLIGHT = 1-2 cells (100X) (None Seen); Hemoglobin 7.7 g/dL (12.0-16.0); Hypochromia SLIGHT = 6-15 cells (100X) (0-5/hpf); Mean Corpuscular HGB CONC 31.3 g/dL (32.0-36.0); Mean Corpuscular Hemoglobin 27.7 pg (27.0-31.0); Mean Corpuscular Volume 88.4 fL (78.0-98.0); Platelet Count 104 thou/uL (130-400); White Blood Cell (WBC) Count 10.6 thou/uL (4.8-10.8)
[2018-02-20 05:31] LABS: Ovalocytes SLIGHT = 2-5 cells (100X) (0-1/hpf); PLT Morphology Comment Appears Decreased
[2018-02-20] MEDS: Mometasone/Formoterol 60 PUFF AER INH SCH ×2 (05:55→18:07)
[2018-02-20] MEDS: Dronedarone HCl 400 MG TAB PO SCH ×2 (08:02→16:58)
[2018-02-20] MEDS: Ferrous Sulfate 325 MG TAB PO SCH ×2 (08:02→18:05)
[2018-02-20] MEDS: Atorvastatin Calcium 10 MG TAB PO SCH (08:39)
[2018-02-20] MEDS: Metoprolol Tartrate 25 MG TAB PO SCH ×2 (08:39→21:07)
[2018-02-20] MEDS: Allopurinol 100 MG TAB PO SCH (08:39)
[2018-02-20] MEDS: Amlodipine 10 MG TAB PO SCH (21:07)
[2018-02-21] MEDS: Acetaminophen 325 MG TAB PO PRN ×3 (01:04→09:30)
[2018-02-21] MEDS: Mometasone/Formoterol 60 PUFF AER INH SCH (05:51)
[2018-02-21 06:25] VITALS: BP 130/63; TEMP 98.4
[2018-02-21 06:39] LABS: #Basophils 0.1 thou/uL (0.0-0.2); #Eosinphils 0.4 thou/uL (0.0-0.7); #Lymphocytes 1.5 thou/uL (1.20-3.40); #Monocytes 0.8 thou/uL (0.11-0.59); #Neutrophils 7.9 thou/uL (1.40-6.50); %Eosinophils 3.5 % (0.0-10.0); %Monocytes 7.2 % (0.0-10.0); %Neutrophils 74.4 % (42.0-75.0); Hemoglobin 8.5 g/dL (12.0-16.0); Mean Corpuscular HGB CONC 33.2 g/dL (32.0-36.0); Mean Corpuscular Hemoglobin 29.2 pg (27.0-31.0); Mean Corpuscular Volume 87.8 fL (78.0-98.0); Platelet Count 121 thou/uL (130-400); RBC Distribution Width 16.6 % (11.5-14.5); White Blood Cell (WBC) Count 10.6 thou/uL (4.8-10.8)
[2018-02-21] MEDS ORDERED: Furosemide 20 MG TAB PO SCH (08:00)
[2018-02-21] MEDS: Allopurinol 100 MG TAB PO SCH (08:23)
[2018-02-21] MEDS: Ferrous Sulfate 325 MG TAB PO SCH (08:23)
[2018-02-21] MEDS: Atorvastatin Calcium 10 MG TAB PO SCH (08:23)
[2018-02-21] MEDS: Dronedarone HCl 400 MG TAB PO SCH (08:23)
[2018-02-21] MEDS: Metoprolol Tartrate 25 MG TAB PO SCH (08:24)
--- NOTE | 2018-02-21 13:20 | DIS ---
DATE OF ADMISSION: 02/07/2018 DATE OF DISCHARGE: 02/21/2018 ADMISSION DIAGNOSES: Physical deconditioning, pneumonia, chronic anemia, type 2 diabetes mellitus, prosthetic aortic mechanical valve, candidal intertrigo, chronic kidney disease stage IV, gastric cancer. SECONDARY DIAGNOSES DURING ADMISSION: Include abdominal hematoma and acute blood loss anemia. PROCEDURES: On 02/13/2018, chest x-ray showed overall improvement in the appearance of the chest since 02/02/2018, some minor residual remains on the right. On 02/15/2018, CT of the abdomen and pelvis showed an interval development of a large soft tissue fluid collection in the left lower anterior abdominal wall which is presumed to be a hematoma and may be active bleeding within it. HOSPITAL COURSE: An 87-year-old female transitioned to [facility] to participate with skilled care, physical therapy and occupational therapy, status post admission at [facility] in [place], where she was treated for sepsis, hypotension, pneumonia of the left lower lobe and a COPD exacerbation. She was instructed to complete a course of p.o. prednisone and IV meropenem during her stay, which she did successfully. She did have a persistent leukocytosis, for which follow up chest x-ray was obtained and was read as above. Due to this and her persistent leukocytosis, she was provided Rocephin via her central line until eventual normalization of her white blood cell count on 02/20/2018, at which time her central line was removed and subsequent followup of her CBC showed a continued normalization of her white blood cell count. Her respiratory status remained stable throughout her stay; she completed her course of p.o. prednisone and received nebulized treatments. She is stable on room air. Early in the patient's stay, she did have a couple episodes of hypoglycemia for which her sulfonylurea, Glipizide, was discontinued. The patient has a recent diagnosis of a gastric ulcer and subsequent biopsy revealing gastric cancer; she is to follow up with Dr. Ford as an outpatient for this issue. Due to this finding, she was discontinued on her Eliquis; however, was sent to our facility on b.i.d. dosing of heparin for anticoagulation therapy. Unfortunately , the patient developed a large abdominal hematoma to the LLQ and an acute drop in her hemoglobin from 9.3 on 02/13/2018 to 6.2 on 02/15/2018. Due to this, she received 2 units of packed red blood cells with a response in her hemoglobin level up to 9.5. Her CT of the abdomen and pelvis is as noted above. Her hemoglobin stabilized thereafter and upon time of discharge is 8.5. The patient was able to participate with physical therapy and occupational therapy sufficiently to be able to discharge to her home setting where she will continue further skilled care via [facility]. DISPOSITION: The patient will discharge home where she will continue further skilled care with physical therapy and occupational therapy with [facility]. Her daughter lives locally as well and helps take care of her. She may follow up with myself in the clinic in 1 week. She may also follow up with Dr. Ford for her recent diagnosis of gastric cancer. DISCHARGE MEDICATIONS: Allopurinol 100 mg p.o. daily, amlodipine 10 mg p.o. daily, atorvastatin 20 mg p.o. daily, cholecalciferol 2000 units p.o. daily, Multaq 400 mg p.o. b.i.d., ferrous sulfate 325 mg p.o. b.i.d., Lasix 20 mg p.o. daily p.r.n., metoprolol 25 mg p.o. b.i.d., Dulera 2 puffs inhaled b.i.d., Protonix 40 mg p.o. daily. MTDD
== END 2018-02-21 13:50 | disposition home health service (06) | DRG 947 ==
LOC: BURMED 14:25
PROVIDERS: ADMIT Family Medicine; ATTEND Family Medicine
PROC: 30233N1 Transfusion of Nonautologous Red Blood Cells into Peripheral Vein, Percutaneous Approach (ICD-10-PCS; principal; 2018-02-15)
DX: R53.1 Weakness (principal); J18.9 Pneumonia, unspecified organism; N18.4 Chronic kidney disease, stage 4 (severe); C16.9 Malignant neoplasm of stomach, unspecified; D62 Acute posthemorrhagic anemia; D50.9 Iron deficiency anemia, unspecified; D37.4 Neoplasm of uncertain behavior of colon; Z95.2 Presence of prosthetic heart valve; E78.5 Hyperlipidemia, unspecified; M10.9 Gout, unspecified; I12.9 Hypertensive chronic kidney disease with stage 1 through stage 4 chronic kidney disease, or unspecified chronic kidney disease; E11.22 Type 2 diabetes mellitus with diabetic chronic kidney disease; D53.1 Other megaloblastic anemias, not elsewhere classified; L30.4 Erythema intertrigo; S30.1XXA Contusion of abdominal wall, initial encounter; J44.9 Chronic obstructive pulmonary disease, unspecified; D72.829 Elevated white blood cell count, unspecified; E11.649 Type 2 diabetes mellitus with hypoglycemia without coma
CPT/HCPCS: 36415; 36416; 36430; 71046; 74176; 80053; 82274; 85025; 85610; 85730; 86850; 86900; 86901; 86922; 94664; A4216; G8978-GP-CJ; G8979-GP-CI; G8987-GO-CL; G8988-GO-CI; J0696; J1610; J1642; J1644; J2185; J7050; J7512; J7620; P9016

== ENCOUNTER 2018-02-25 15:15 | Inpatient (IN) | payer MEDICARE ==
[2018-02-25] MEDS ORDERED: Furosemide 40 MG/4 ML VIAL SLOW IVP SCH (16:00)
[2018-02-25] MEDS ORDERED: Sodium Chloride 0.9% 10 ML ONE (16:06)
[2018-02-25 16:35] LABS: #Basophils 0.1 thou/uL (0.0-0.2); #Eosinphils 0.3 thou/uL (0.0-0.7); #Lymphocytes 1.2 thou/uL (1.20-3.40); #Monocytes 0.9 thou/uL (0.11-0.59); #Neutrophils 7.3 thou/uL (1.40-6.50); %Basophils 1.2 % (0.0-1.0); %Eosinophils 3.2 % (0.0-10.0); %Lymphocytes 12.2 % (21.0-51.0); %Monocytes 8.7 % (0.0-10.0); %Neutrophils 74.6 % (42.0-75.0); Hemoglobin 8.1 g/dL (12.0-16.0); Mean Corpuscular HGB CONC 32.8 g/dL (32.0-36.0); Mean Corpuscular Volume 88.6 fL (78.0-98.0); Mean Platelet Volume 8.1 fL (7.4-10.4); Platelet Count 250 thou/uL (130-400); RBC Distribution Width 18.4 % (11.5-14.5); Red Blood Cell (RBC) Count 2.79 mill/uL (4.20-5.40); White Blood Cell (WBC) Count 9.8 thou/uL (4.8-10.8)
[2018-02-25 17:02] LABS: ALT (SGPT) 15 U/L (8-55); AST (SGOT) 15 U/L (5-34); Albumin 3.2 g/dL (3.4-4.8); Alkaline Phosphatase 80 U/L (40-150); Anion Gap 18 mmol/L (10-20); BUN (Urea Nitrogen) 51 mg/dL (9.8-20.1); Bilirubin, Total 0.8 mg/dL (0.2-1.2); Calc. Creatinine Clearance 18 mL/min (70-130); Carbon Dioxide 20 mmol/L (23-31); Chloride 109 mmol/L (98-107); Estimated GFR-MDRD 19; Globulin 2.5 g/dL (2.4-3.5); Glucose 132 mg/dL (83-110); Potassium 3.5 mmol/L (3.5-5.1); Protein, Total 5.7 g/dL (6.0-8.3); Sodium 143 mmol/L (136-145)
[2018-02-25] MEDS: Mometasone/Formoterol 60 PUFF AER INH SCH (18:22)
[2018-02-25] MEDS: Atorvastatin Calcium 10 MG TAB PO SCH (18:23)
--- NOTE | 2018-02-25 19:47 | RAD ---
CHEST TWO VIEWS: 02/25/2018 COMPARISON: 02/13/2018 FINDINGS: The right basilar streaking still has some residual present. The changes since 02/13/2018 are minima l. No new infiltrates are seen. There are no effusions. The cardiac size is stable. There is no c ongestive change. IMPRESSION: Mild residual streaking in the right base, with no adverse change in the interval. If anything, ther e has been slight improvement. POS: HOME
[2018-02-25] MEDS: Metoprolol Tartrate 25 MG TAB PO SCH (20:14)
[2018-02-25] MEDS: Ferrous Sulfate 325 MG TAB PO SCH (20:15)
[2018-02-26 05:34] LABS: Anion Gap 15 mmol/L (10-20); BUN (Urea Nitrogen) 50 mg/dL (9.8-20.1); Calc. Creatinine Clearance 19 mL/min (70-130); Calcium 8.8 mg/dL (7.8-10.44); Carbon Dioxide 20 mmol/L (23-31); Chloride 111 mmol/L (98-107); Estimated GFR-MDRD 20; Glucose 120 mg/dL (83-110); Potassium 3.3 mmol/L (3.5-5.1); Sodium 143 mmol/L (136-145)
[2018-02-26 05:49] LABS: #Basophils 0.1 thou/uL (0.0-0.2); #Eosinphils 0.3 thou/uL (0.0-0.7); #Lymphocytes 1.1 thou/uL (1.20-3.40); #Monocytes 0.9 thou/uL (0.11-0.59); #Neutrophils 6.2 thou/uL (1.40-6.50); %Basophils 0.7 % (0.0-1.0); %Eosinophils 3.7 % (0.0-10.0); %Lymphocytes 12.8 % (21.0-51.0); %Monocytes 10.6 % (0.0-10.0); %Neutrophils 72.2 % (42.0-75.0); Anisocytosis MODERATE=16-30 cells (100X) (0-5/hpf); Hemoglobin 7.2 g/dL (12.0-16.0); MDiff Complete? YES; Mean Corpuscular HGB CONC 32.8 g/dL (32.0-36.0); Mean Corpuscular Hemoglobin 29.4 pg (27.0-31.0); Mean Corpuscular Volume 89.7 fL (78.0-98.0); Mean Platelet Volume 7.3 fL (7.4-10.4); PLT Morphology Comment Appears Adequate; Platelet Count 210 thou/uL (130-400); RBC Distribution Width 20.9 % (11.5-14.5); Red Blood Cell (RBC) Count 2.43 mill/uL (4.20-5.40); White Blood Cell (WBC) Count 8.6 thou/uL (4.8-10.8)
[2018-02-26] MEDS: Furosemide 40 MG/4 ML VIAL SLOW IVP SCH ×2 (06:06→13:49)
[2018-02-26] MEDS: Sodium Chloride 0.9% 10 ML ONE ×2 (06:06→13:50)
[2018-02-26] MEDS: Mometasone/Formoterol 60 PUFF AER INH SCH ×2 (06:07→19:10)
[2018-02-26] MEDS: Metoprolol Tartrate 25 MG TAB PO SCH ×2 (08:09→20:28)
[2018-02-26] MEDS: Saccharomyces boulardii 250 MG CAP PO SCH (08:09)
[2018-02-26] MEDS: Amlodipine 10 MG TAB PO SCH (08:09)
[2018-02-26] MEDS: Potassium Chloride 20 MEQ TAB PO SCH (08:09)
[2018-02-26] MEDS: Dronedarone HCl 400 MG TAB PO SCH ×2 (08:09→17:10)
[2018-02-26] MEDS: Allopurinol 100 MG TAB PO SCH (08:12)
[2018-02-26] MEDS: Ferrous Sulfate 325 MG TAB PO SCH ×2 (08:12→20:28)
[2018-02-26] MEDS ORDERED: Acetaminophen 325 MG TAB PO PRN (08:26)
[2018-02-26] MEDS ORDERED: Potassium Chloride 20 MEQ TAB PO SCH (08:30)
[2018-02-26 14:25] LABS: Hemoglobin 8.2 g/dL (12.0-16.0)
[2018-02-26] MEDS: Atorvastatin Calcium 10 MG TAB PO SCH (20:27)
[2018-02-27] MEDS ORDERED: Sodium Chloride 0.9% 10 ML ONE (03:43)
[2018-02-27] MEDS: Mometasone/Formoterol 60 PUFF AER INH SCH ×2 (04:27→20:48)
[2018-02-27] MEDS: Furosemide 40 MG/4 ML VIAL SLOW IVP SCH ×2 (04:29→15:39)
[2018-02-27 05:24] LABS: ALT (SGPT) 11 U/L (8-55); AST (SGOT) 12 U/L (5-34); Albumin 2.8 g/dL (3.4-4.8); Alkaline Phosphatase 66 U/L (40-150); Anion Gap 17 mmol/L (10-20); BUN (Urea Nitrogen) 49 mg/dL (9.8-20.1); Bilirubin, Total 0.6 mg/dL (0.2-1.2); Calc. Creatinine Clearance 17 mL/min (70-130); Carbon Dioxide 22 mmol/L (23-31); Chloride 108 mmol/L (98-107); Estimated GFR-MDRD 18; Globulin 2.7 g/dL (2.4-3.5); Glucose 132 mg/dL (83-110); Potassium 3.9 mmol/L (3.5-5.1); Protein, Total 5.5 g/dL (6.0-8.3); Sodium 143 mmol/L (136-145)
[2018-02-27 05:40] LABS: #Basophils 0.1 thou/uL (0.0-0.2); #Eosinphils 0.3 thou/uL (0.0-0.7); #Lymphocytes 1.4 thou/uL (1.20-3.40); #Monocytes 0.9 thou/uL (0.11-0.59); #Neutrophils 6.2 thou/uL (1.40-6.50); %Basophils 0.9 % (0.0-1.0); %Eosinophils 3.2 % (0.0-10.0); %Lymphocytes 15.6 % (21.0-51.0); %Monocytes 10.5 % (0.0-10.0); %Neutrophils 69.7 % (42.0-75.0); Anisocytosis MODERATE=16-30 cells (100X) (0-5/hpf); Hemoglobin 7.3 g/dL (12.0-16.0); MDiff Complete? YES; Mean Corpuscular Hemoglobin 28.7 pg (27.0-31.0); Mean Corpuscular Volume 89.8 fL (78.0-98.0); Mean Platelet Volume 8.4 fL (7.4-10.4); PLT Morphology Comment Appears Adequate; Platelet Count 242 thou/uL (130-400); RBC Distribution Width 19.6 % (11.5-14.5); Red Blood Cell (RBC) Count 2.52 mill/uL (4.20-5.40); White Blood Cell (WBC) Count 8.9 thou/uL (4.8-10.8)
[2018-02-27] MEDS: Ferrous Sulfate 325 MG TAB PO SCH ×2 (08:38→20:52)
[2018-02-27] MEDS: Dronedarone HCl 400 MG TAB PO SCH ×2 (08:38→17:10)
[2018-02-27] MEDS: Potassium Chloride 20 MEQ TAB PO SCH (08:38)
[2018-02-27] MEDS: Allopurinol 100 MG TAB PO SCH (08:39)
[2018-02-27] MEDS: Saccharomyces boulardii 250 MG CAP PO SCH (08:39)
[2018-02-27] MEDS: Amlodipine 10 MG TAB PO SCH (08:39)
[2018-02-27] MEDS: Metoprolol Tartrate 25 MG TAB PO SCH ×2 (08:39→20:52)
[2018-02-27 14:57] LABS: Band 1 % (5-11); Eosinophils 1 % (0-10); Hemoglobin 9.1 g/dL (12.0-16.0); Lymphocytes 11 % (21-51); MDiff Complete? YES; Macrocytosis SLIGHT = 6-15 cells (100X) (0-5/hpf); Mean Corpuscular HGB CONC 33.2 g/dL (32.0-36.0); Mean Corpuscular Hemoglobin 29.1 pg (27.0-31.0); Mean Corpuscular Volume 87.6 fL (78.0-98.0); Mean Platelet Volume 7.8 fL (7.4-10.4); Microcytosis SLIGHT = 6-15 cells (100X) (0-5/hpf); Monocytes 10 % (0-10); Neutrophil 77 % (42-75); Platelet Count 211 thou/uL (130-400); RBC Distribution Width 18.2 % (11.5-14.5); Red Blood Cell (RBC) Count 3.11 mill/uL (4.20-5.40); White Blood Cell (WBC) Count 9.6 thou/uL (4.8-10.8)
[2018-02-27] MEDS: Atorvastatin Calcium 10 MG TAB PO SCH (20:51)
[2018-02-28 04:15] VITALS: BMI 26.2
[2018-02-28 05:00] LABS: Anion Gap 18 mmol/L (10-20); BUN (Urea Nitrogen) 46 mg/dL (9.8-20.1); Calc. Creatinine Clearance 15 mL/min (70-130); Calcium 8.9 mg/dL (7.8-10.44); Carbon Dioxide 22 mmol/L (23-31); Chloride 106 mmol/L (98-107); Estimated GFR-MDRD 17; Glucose 113 mg/dL (83-110); Potassium 3.5 mmol/L (3.5-5.1); Sodium 142 mmol/L (136-145)
[2018-02-28 05:14] LABS: #Basophils 0.1 thou/uL (0.0-0.2); #Eosinphils 0.3 thou/uL (0.0-0.7); #Lymphocytes 1.2 thou/uL (1.20-3.40); #Monocytes 0.9 thou/uL (0.11-0.59); #Neutrophils 7.2 thou/uL (1.40-6.50); %Basophils 1.3 % (0.0-1.0); %Eosinophils 3.2 % (0.0-10.0); %Lymphocytes 12.7 % (21.0-51.0); %Monocytes 9.2 % (0.0-10.0); %Neutrophils 73.7 % (42.0-75.0); Mean Corpuscular HGB CONC 32.1 g/dL (32.0-36.0); Mean Corpuscular Hemoglobin 28.5 pg (27.0-31.0); Mean Corpuscular Volume 88.8 fL (78.0-98.0); Platelet Count 256 thou/uL (130-400); RBC Distribution Width 18.6 % (11.5-14.5); Red Blood Cell (RBC) Count 3.15 mill/uL (4.20-5.40); White Blood Cell (WBC) Count 9.7 thou/uL (4.8-10.8)
[2018-02-28 05:15] LABS: Anisocytosis SLIGHT = 6-15 cells (100X) (0-5/hpf); Ovalocytes SLIGHT = 2-5 cells (100X) (0-1/hpf); Polychromasia SLIGHT = 2-3 cells (100X) (0-2/hpf)
[2018-02-28 05:16] LABS: PLT Morphology Comment Appears Adequate
[2018-02-28] MEDS ORDERED: Sodium Chloride 0.9% 10 ML ONE (05:19)
[2018-02-28 05:32] VITALS: TEMP 98.4
[2018-02-28] MEDS: Furosemide 40 MG/4 ML VIAL SLOW IVP SCH (05:46)
[2018-02-28] MEDS: Mometasone/Formoterol 60 PUFF AER INH SCH (05:48)
[2018-02-28] MEDS: Metoprolol Tartrate 25 MG TAB PO SCH (09:27)
[2018-02-28] MEDS: Potassium Chloride 20 MEQ TAB PO SCH (09:27)
[2018-02-28] MEDS: Saccharomyces boulardii 250 MG CAP PO SCH (09:27)
[2018-02-28] MEDS: Dronedarone HCl 400 MG TAB PO SCH (09:28)
[2018-02-28] MEDS: Ferrous Sulfate 325 MG TAB PO SCH (09:28)
[2018-02-28] MEDS: Amlodipine 10 MG TAB PO SCH (09:28)
[2018-02-28] MEDS: Allopurinol 100 MG TAB PO SCH (09:28)
[2018-02-28 09:56] VITALS: BP 123/58
[2018-02-28 11:31] LABS: MDiff Complete? YES
--- NOTE | 2018-02-28 13:42 | DIS ---
DATE OF ADMISSION: 02/25/2018 DATE OF DISCHARGE FROM INPATIENT TO SWING PATIENT: 02/28/2018 ADMISSION DIAGNOSES: 1. Volume overload related to congestive heart failure with preserved ejection fraction. 2. Iron deficiency anemia. 3. Gastric cancer. 4. Type 2 diabetes mellitus. 5. Chronic kidney disease stage 4. 6. Hypertension. 7. Physical deconditioning. 8. Hypokalemia. PROCEDURES: Chest x-ray on 02/25/2018 showed mild residual streaking in the right base with no adverse change in the interval, if anything there has been slight improvement. HOSPITAL COURSE: An 88-year-old female who presented to the clinical setting with 2+ pitting edema involving bilateral lower extremities up to her knees with recent worsening of physical deconditioning. The patient had been recently hospitalized and received treatment for pneumonia, UTI, acute blood loss anemia related to abdominal hematoma and physical deconditioning; she had transitioned to her home setting to participate with further PT and OT via [facility] and is typically on 20 mg p.o. Lasix; however, she continued to have worsening lower extremity edema. She was directly admitted from the clinical setting to the floor with initial labs revealing no leukocytosis, hemoglobin of 8.1, mildly elevated BNP 338.9, chronic kidney disease stage 4 with a GFR of 19 and a borderline potassium level of 3.5. She was started on IV Lasix 40 mg b.i.d. secondary to her volume overload. Followup of her labs revealed a drop of her hemoglobin with a low of 7.2. Secondary to this and her physical deconditioning she was provided 1 unit of packed red blood cells with her hemoglobin rebounding to a level of 9.1 as of yesterday. Repeat hemoglobin today shows stable at 9.0. The patient has effectively diuresed on the IV Lasix. She has been reevaluated by physical therapy who have deemed her to have insufficient endurance levels to be able to return home at this time. Due to this, the patient will be transitioned from acute inpatient status to swing bed status for further skilled therapy with PT and OT. Now that she is euvolemic I will discontinue her IV Lasix and transition back to p.o. Lasix; however, will increase her usual dose from 20 mg to 40 mg p.o. daily. The patient typically lives alone and is frequently checked on by her daughter who lives locally as well. They are both amenable to transition to swing bed status for further skilled care with PT and OT. DISPOSITION: The patient will discharge from acute inpatient status to swing bed status for further skilled care with physical therapy and occupational therapy. Upon completion of her goals set by PT and OT she will discharge to her home setting with further skilled care to be provided by [facility]. DISCHARGE MEDICATIONS: Include Tylenol 650 mg p.o. q.6 hours p.r.n., allopurinol 100 mg p.o. daily, amlodipine 10 mg p.o. daily, atorvastatin 20 mg p.o. at bedtime, cholecalciferol 2000 units p.o. daily, Multaq 400 mg p.o. b.i.d., ferrous sulfate 325 mg p.o. b.i.d., Lasix 40 mg p.o. daily, metoprolol tartrate 25 mg p.o. b.i.d., Dulera 2 puffs inhaled b.i.d., Protonix 40 mg p.o. daily, potassium chloride 20 mEq p.o. daily. MTDD
[2018-03-01] MEDS ORDERED: Furosemide 40 MG TAB PO SCH (07:30)
== END 2018-02-28 13:22 | disposition swing bed (61) | DRG 292 ==
LOC: BURMED 15:15
PROVIDERS: ADMIT Family Medicine; ATTEND Family Medicine
DX: I13.0 Hypertensive heart and chronic kidney disease with heart failure and stage 1 through stage 4 chronic kidney disease, or unspecified chronic kidney disease (principal); N18.4 Chronic kidney disease, stage 4 (severe); C16.9 Malignant neoplasm of stomach, unspecified; I50.32 Chronic diastolic (congestive) heart failure; I42.9 Cardiomyopathy, unspecified; E11.22 Type 2 diabetes mellitus with diabetic chronic kidney disease; D50.9 Iron deficiency anemia, unspecified; S30.1XXA Contusion of abdominal wall, initial encounter; E78.5 Hyperlipidemia, unspecified; I48.91 Unspecified atrial fibrillation; Z87.01 Personal history of pneumonia (recurrent); E87.6 Hypokalemia
CPT/HCPCS: 36415; 36416; 36430; 71046; 80048; 80053; 83880; 85025; 86850; 86900; 86901; 86922; 94664; A4216; G8978-GP-CJ; G8979-GP-CI; J1940; P9016

== ENCOUNTER 2018-02-28 13:22 | Inpatient (IN) | payer MEDICARE ==
[2018-02-28] MEDS ORDERED: Prevnar 13-Val Conj/PF 0.5 ML SYRINGE IM ONE (16:30)
[2018-02-28] MEDS: Dronedarone HCl 400 MG TAB PO SCH (18:15)
[2018-02-28] MEDS: Mometasone/Formoterol 60 PUFF AER INH SCH (18:16)
[2018-02-28] MEDS: Ferrous Sulfate 325 MG TAB PO SCH (20:02)
[2018-02-28] MEDS: Atorvastatin Calcium 10 MG TAB PO SCH (20:02)
[2018-02-28] MEDS: Metoprolol Tartrate 25 MG TAB PO SCH (20:02)
[2018-03-01] MEDS: Mometasone/Formoterol 60 PUFF AER INH SCH ×2 (05:53→18:43)
[2018-03-01] MEDS: Furosemide 40 MG TAB PO SCH (08:15)
[2018-03-01] MEDS: Metoprolol Tartrate 25 MG TAB PO SCH ×2 (08:15→21:05)
[2018-03-01] MEDS: Potassium Chloride 20 MEQ TAB PO SCH (08:16)
[2018-03-01] MEDS: Allopurinol 100 MG TAB PO SCH (08:16)
[2018-03-01] MEDS: Ferrous Sulfate 325 MG TAB PO SCH ×2 (08:16→21:05)
[2018-03-01] MEDS: Amlodipine 10 MG TAB PO SCH (08:16)
[2018-03-01] MEDS: Dronedarone HCl 400 MG TAB PO SCH ×2 (08:17→16:32)
[2018-03-01 18:03] VITALS: BMI 26.0
[2018-03-01] MEDS: Atorvastatin Calcium 10 MG TAB PO SCH (21:05)
[2018-03-02] MEDS: Mometasone/Formoterol 60 PUFF AER INH SCH ×2 (06:03→18:47)
[2018-03-02] MEDS: Amlodipine 10 MG TAB PO SCH (08:28)
[2018-03-02] MEDS: Acetaminophen 325 MG TAB PO PRN (08:29)
[2018-03-02] MEDS: Allopurinol 100 MG TAB PO SCH (08:29)
[2018-03-02] MEDS: Metoprolol Tartrate 25 MG TAB PO SCH ×2 (08:29→21:32)
[2018-03-02] MEDS: Potassium Chloride 20 MEQ TAB PO SCH (08:30)
[2018-03-02] MEDS: Ferrous Sulfate 325 MG TAB PO SCH ×2 (08:30→21:32)
[2018-03-02] MEDS: Furosemide 40 MG TAB PO SCH (08:30)
[2018-03-02] MEDS: Dronedarone HCl 400 MG TAB PO SCH ×2 (08:38→18:01)
[2018-03-02] MEDS: Atorvastatin Calcium 10 MG TAB PO SCH (21:32)
[2018-03-03] MEDS: Mometasone/Formoterol 60 PUFF AER INH SCH ×2 (05:34→18:05)
[2018-03-03] MEDS ORDERED: Acetaminophen 325 MG TAB ONE (08:52)
[2018-03-03] MEDS: Furosemide 40 MG TAB PO SCH (09:55)
[2018-03-03] MEDS: Ferrous Sulfate 325 MG TAB PO SCH ×2 (09:55→21:38)
[2018-03-03] MEDS: Amlodipine 10 MG TAB PO SCH (09:55)
[2018-03-03] MEDS: Metoprolol Tartrate 25 MG TAB PO SCH ×2 (09:56→21:38)
[2018-03-03] MEDS: Acetaminophen 325 MG TAB PO PRN ×2 (09:56→21:38)
[2018-03-03] MEDS: Dronedarone HCl 400 MG TAB PO SCH ×2 (09:57→17:49)
[2018-03-03] MEDS: Allopurinol 100 MG TAB PO SCH (09:57)
[2018-03-03] MEDS: Potassium Chloride 20 MEQ TAB PO SCH (09:57)
[2018-03-03] MEDS: Atorvastatin Calcium 10 MG TAB PO SCH (21:38)
[2018-03-04] MEDS: Mometasone/Formoterol 60 PUFF AER INH SCH ×2 (06:16→18:21)
[2018-03-04] MEDS: Allopurinol 100 MG TAB PO SCH (09:53)
[2018-03-04] MEDS: Potassium Chloride 20 MEQ TAB PO SCH (09:54)
[2018-03-04] MEDS: Ferrous Sulfate 325 MG TAB PO SCH ×2 (09:54→20:28)
[2018-03-04] MEDS: Furosemide 40 MG TAB PO SCH (09:54)
[2018-03-04] MEDS: Dronedarone HCl 400 MG TAB PO SCH ×2 (09:55→18:20)
[2018-03-04] MEDS: Amlodipine 10 MG TAB PO SCH (09:55)
[2018-03-04] MEDS: Metoprolol Tartrate 25 MG TAB PO SCH ×2 (09:55→20:27)
[2018-03-04] MEDS: Acetaminophen 325 MG TAB PO PRN (09:55)
[2018-03-04] MEDS: Atorvastatin Calcium 10 MG TAB PO SCH (20:28)
[2018-03-05 04:49] LABS: ALT (SGPT) 20 U/L (8-55); AST (SGOT) 25 U/L (5-34); Alkaline Phosphatase 82 U/L (40-150); Anion Gap 15 mmol/L (10-20); BUN (Urea Nitrogen) 62 mg/dL (9.8-20.1); Bilirubin, Total Less than 0.2 mg/dL (0.2-1.2); Calc. Creatinine Clearance 13 mL/min (70-130); Calcium 8.8 mg/dL (7.8-10.44); Carbon Dioxide 24 mmol/L (23-31); Chloride 105 mmol/L (98-107); Estimated GFR-MDRD 15; Globulin 2.9 g/dL (2.4-3.5); Glucose 134 mg/dL (83-110); Potassium 4.3 mmol/L (3.5-5.1); Protein, Total 5.9 g/dL (6.0-8.3); Sodium 140 mmol/L (136-145)
[2018-03-05 04:55] LABS: #Basophils 0.1 thou/uL (0.0-0.2); #Eosinphils 0.2 thou/uL (0.0-0.7); #Lymphocytes 1.3 thou/uL (1.20-3.40); #Monocytes 1.1 thou/uL (0.11-0.59); #Neutrophils 7.2 thou/uL (1.40-6.50); %Basophils 1.3 % (0.0-1.0); %Eosinophils 1.7 % (0.0-10.0); %Lymphocytes 12.9 % (21.0-51.0); %Monocytes 11.3 % (0.0-10.0); %Neutrophils 72.8 % (42.0-75.0); Anisocytosis SLIGHT = 6-15 cells (100X) (0-5/hpf); Hemoglobin 8.6 g/dL (12.0-16.0); Hypochromia SLIGHT = 6-15 cells (100X) (0-5/hpf); MDiff Complete? YES; Mean Corpuscular HGB CONC 32.3 g/dL (32.0-36.0); Mean Corpuscular Volume 90.1 fL (78.0-98.0); Mean Platelet Volume 9.2 fL (7.4-10.4); Ovalocytes SLIGHT = 2-5 cells (100X) (0-1/hpf); PLT Morphology Comment Appears Adequate; Platelet Count 223 thou/uL (130-400); RBC Distribution Width 19.5 % (11.5-14.5); Red Blood Cell (RBC) Count 2.97 mill/uL (4.20-5.40); White Blood Cell (WBC) Count 9.9 thou/uL (4.8-10.8)
[2018-03-05] MEDS: Mometasone/Formoterol 60 PUFF AER INH SCH ×2 (06:22→18:37)
[2018-03-05] MEDS: Amlodipine 10 MG TAB PO SCH (08:51)
[2018-03-05] MEDS: Dronedarone HCl 400 MG TAB PO SCH ×2 (08:57→17:42)
[2018-03-05] MEDS: Furosemide 40 MG TAB PO SCH (08:57)
[2018-03-05] MEDS: Ferrous Sulfate 325 MG TAB PO SCH ×2 (08:57→21:22)
[2018-03-05] MEDS: Acetaminophen 325 MG TAB PO PRN (08:57)
[2018-03-05] MEDS: Metoprolol Tartrate 25 MG TAB PO SCH ×2 (08:57→21:22)
[2018-03-05] MEDS: Allopurinol 100 MG TAB PO SCH (08:57)
[2018-03-05] MEDS: Potassium Chloride 20 MEQ TAB PO SCH (08:58)
[2018-03-05] MEDS: Atorvastatin Calcium 10 MG TAB PO SCH (21:22)
[2018-03-06] MEDS: Mometasone/Formoterol 60 PUFF AER INH SCH (05:47)
[2018-03-06 06:55] VITALS: TEMP 98.1
[2018-03-06] MEDS: Amlodipine 10 MG TAB PO SCH (09:19)
[2018-03-06] MEDS: Dronedarone HCl 400 MG TAB PO SCH (09:20)
[2018-03-06] MEDS: Metoprolol Tartrate 25 MG TAB PO SCH (09:21)
[2018-03-06] MEDS: Allopurinol 100 MG TAB PO SCH (09:21)
[2018-03-06] MEDS: Ferrous Sulfate 325 MG TAB PO SCH (09:21)
[2018-03-06] MEDS: Potassium Chloride 20 MEQ TAB PO SCH (09:21)
[2018-03-06] MEDS: Furosemide 40 MG TAB PO SCH (09:21)
[2018-03-06 09:22] VITALS: BP 126/68
--- NOTE | 2018-03-06 12:38 | DIS ---
DATE OF ADMISSION: 02/25/2018 DATE OF DISCHARGE: 03/06/2018 DISCHARGE DIAGNOSES: Volume overload related to congestive heart failure with preserved ejection fraction, iron deficiency anemia related to abdominal hematoma, gastric cancer, type 2 diabetes mellitus, chronic kidney disease stage 4, hypertension, physical deconditioning and hypokalemia. PROCEDURES: 02/25/2018 - Chest x-ray showed mild residual streaking in the right base with no adverse change in the interval, if anything there has been slight improvement. HOSPITAL COURSE: An 88-year-old female who was directly admitted from the clinical setting with gradually worsening lower extremity edema, 2+ pitting to bilateral lower extremities up to the level of her knees accompanied by progressive generalized weakness. She had been taking p.o. 20 mg Lasix at home with no improvement. Labs did reveal an elevated BNP into the mid 300s. She was effectively diuresed on IV Lasix 40 mg b.i.d. which was transitioned to 40 mg p.o. daily. The patient does have stage 4 chronic kidney disease and did have a decline in renal function secondary to increased doses of Lasix. She is to follow up with her dialysis registered nurse next Sunday. The patient does have a fairly recent diagnosis of gastric cancer and had had a prior related GI bleed requiring packed red blood cell transfusion. She secondarily developed an abdominal hematoma related to heparin injections. Due to these diagnoses, she has been withheld from further anticoagulation therapy, although she does have underlying atrial fibrillation. Her hemoglobin did trend down during her stay to a level of 7.2, thus she did receive 1 unit packed red blood cells for which her hemoglobin responded to a level of 9. Prior to discharge and as of yesterday, her hemoglobin level was stable at 8.6. The patient was able to participate with physical therapy and occupational therapy secondary to her physical deconditioning. She has improved enough to meet their goals to enable her to discharge to her home setting where she will continue further PT and OT with [facility]. She will have further assistance from her daughter who lives locally as well. DISPOSITION: The patient will discharge to her home today and may follow up with myself in the clinic in a week and with Nephrology next week. She will have further PT and OT via [facility]. DISCHARGE MEDICATIONS: Tylenol 650 mg p.o. q.6 hours p.r.n., allopurinol 100 mg p.o. daily, amlodipine 10 mg p.o. daily, atorvastatin 20 mg p.o. at bedtime, cholecalciferol 2000 units p.o. daily, Multaq 400 mg p.o. b.i.d., ferrous sulfate 325 mg p.o. b.i.d., Lasix 40 mg p.o. daily, metoprolol tartrate 25 mg p.o. b.i.d., Dulera 2 puffs inhaled b.i.d., Protonix 40 mg p.o. daily, and potassium chloride 20 mEq p.o. daily. MTDD
== END 2018-03-06 13:30 | disposition home health service (06) | DRG 292 ==
LOC: BURMED 13:22
PROVIDERS: ADMIT Family Medicine; ATTEND Family Medicine
DX: I13.0 Hypertensive heart and chronic kidney disease with heart failure and stage 1 through stage 4 chronic kidney disease, or unspecified chronic kidney disease (principal); C16.9 Malignant neoplasm of stomach, unspecified; N18.4 Chronic kidney disease, stage 4 (severe); I50.30 Unspecified diastolic (congestive) heart failure; L76.31 Postprocedural hematoma of skin and subcutaneous tissue following a dermatologic procedure; D50.9 Iron deficiency anemia, unspecified; E78.5 Hyperlipidemia, unspecified; M10.9 Gout, unspecified; I08.1 Rheumatic disorders of both mitral and tricuspid valves; E11.22 Type 2 diabetes mellitus with diabetic chronic kidney disease; Z95.2 Presence of prosthetic heart valve; D63.1 Anemia in chronic kidney disease; I48.91 Unspecified atrial fibrillation; S30.1XXA Contusion of abdominal wall, initial encounter
CPT/HCPCS: 36415; 36416; 80053; 83970; 84100; 85025; 94664; G8978-GP-CJ; G8979-GP-CI; G8987-GO-CK; G8988-GO-CI

== ENCOUNTER 2018-03-17 04:04 | Emergency (ER) | payer MEDICARE ==
[2018-03-17] MEDS ORDERED: Pantoprazole 40 MG VIAL ONE (04:32)
[2018-03-17 04:44] LABS: ALT (SGPT) 91 U/L (8-55); AST (SGOT) 100 U/L (5-34); Albumin 3.5 g/dL (3.4-4.8); Alkaline Phosphatase 242 U/L (40-150); Anion Gap 19 mmol/L (10-20); BUN (Urea Nitrogen) 98 mg/dL (9.8-20.1); Bilirubin, Total 0.6 mg/dL (0.2-1.2); Calc. Creatinine Clearance 0 mL/min (70-130); Calcium 9.6 mg/dL (7.8-10.44); Carbon Dioxide 24 mmol/L (23-31); Chloride 100 mmol/L (98-107); Estimated GFR-MDRD 12; Globulin 3.3 g/dL (2.4-3.5); Glucose 226 mg/dL (83-110); Lipase 86 U/L (8-78); Potassium 3.7 mmol/L (3.5-5.1); Protein, Total 6.8 g/dL (6.0-8.3); Sodium 139 mmol/L (136-145)
[2018-03-17 04:51] LABS: #Basophils 0.1 thou/uL (0.0-0.2); #Eosinphils 0.6 thou/uL (0.0-0.7); #Monocytes 1.3 thou/uL (0.11-0.59); #Neutrophils 15.4 thou/uL (1.40-6.50); %Basophils 0.7 % (0.0-1.0); %Lymphocytes 10.4 % (21.0-51.0); %Monocytes 6.8 % (0.0-10.0); %Neutrophils 79.1 % (42.0-75.0); Anisocytosis MODERATE=16-30 cells (100X) (0-5/hpf); Elliptocytes SLIGHT = 2-5 cells (100X) (0-1/hpf); Hemoglobin 7.2 g/dL (12.0-16.0); MDiff Complete? YES; Mean Corpuscular HGB CONC 32.1 g/dL (32.0-36.0); Mean Corpuscular Hemoglobin 29.3 pg (27.0-31.0); Mean Corpuscular Volume 91.1 fL (78.0-98.0); Mean Platelet Volume 9.2 fL (7.4-10.4); Ovalocytes SLIGHT = 2-5 cells (100X) (0-1/hpf); PLT Morphology Comment Appears Adequate; Platelet Count 242 thou/uL (130-400); RBC Distribution Width 20.1 % (11.5-14.5); Red Blood Cell (RBC) Count 2.46 mill/uL (4.20-5.40); White Blood Cell (WBC) Count 19.4 thou/uL (4.8-10.8)
--- NOTE | 2018-03-17 08:14 | RAD ---
PORTABLE CHEST: DATE: 03/17/2018. FINDINGS: An AP portable film at 0506 is compared with an 01/31/2018 study. The heart is mildly enlarged, but n o more so than before. Median sternotomy sutures are noted from prior surgery. There is currently n o vascular congestion. There is a little bit of basilar streaking, particularly in the right base me dially. This is more likely atelectasis than not. The lungs are otherwise clear. IMPRESSION: Mild cardiomegaly, stable. Possible mild basilar atelectasis. POS: HOME
--- NOTE | 2018-03-17 09:39 | CT ---
PRELIMINARY REPORT/[facility]/EMERGENTY AFTER-HOURS PROCEDURE CT Abdomen and Pelvis Without Intravenous Contrast EXAM DATE/TIME: 03/17/2018 5:16 AM CLINICAL HISTORY: 88 years female; Signs and symptoms and condition or disease; Cancer; Stomach; Nausea and vomiting; P atient HX: Recently told cancer//tonight n/v; Additional info: Old study done 02/15/18 faxing report no t sure if i can push films. Vrc read 02-15 study//sending from scanner old study TECHNIQUE: Axial computed tomography images of the abdomen and pelvis without intravenous contrast. All CT scans at this facility use at least one of these dose optimization techniques: automated exposure control; mA and/or kV adjustment per patient size (includes targeted exams where dose is matched to clinical indication); or iterative reconstruction. COMPARISON: CT Abdomen Pelvis WO Con 02/15/2018 7:56 AM FINDINGS: Lung bases: Scarring or subsegmental atelectasis both lung bases. Pleural space: Trace bilateral pleural effusions. ABDOMEN: Liver: Unremarkable. Gallbladder and bile ducts: Cholelithiasis with distended gallbladder. No ductal dilation. Pancreas: Unremarkable. No ductal dilation. Spleen: Unremarkable. No splenomegaly. Adrenals: Unremarkable. No mass. Kidneys and ureters: Punctate nonobstructing bilateral intrarenal calculi. Stomach and bowel: Few scattered colonic diverticula. No diverticulitis. No obstruction. PELVIS: Appendix: No findings to suggest acute appendicitis. Bladder: Unremarkable. No stones. Reproductive: Unremarkable as visualized. ABDOMEN and PELVIS: Intraperitoneal space: Unremarkable. No free air. No significant fluid collection. Bones/joints: Advanced degenerative changes. Prior median sternotomy. No acute fracture. No dislocati on. Soft tissues: Interval decrease of left lower quadrant anterior abdominal wall subcutaneous fluid col lection consistent with decreasing hematoma. Currently measuring 12 cm in long axis, previously 14 cm . Vasculature: Atherosclerosis. No abdominal aortic aneurysm. Lymph nodes: Unremarkable. No enlarged lymph nodes. IMPRESSION: Interval decrease of left lower quadrant anterior abdominal wall subcutaneous fluid collection consis tent with decreasing hematoma. Currently measuring 12 cm in long axis, previously 14 cm. Cholelithiasis with distended gallbladder. Thank you for allowing us to participate in the care of your patient. Dictated and Authenticated by: Roger Martin MD 03/17/2018 6:30 AM Central Time ([place] & [place]) FINAL REPORT CT ABDOMEN AND PELVIS WITHOUT CONTRAST: DATE: 03/17/2018. FINDINGS: Comparison is made with the prior study dated 02/15/2018. Substantial basilar atelectasis is present bilaterally. Small bilateral pleural effusions are seen, but they are less than before..The liver, spleen, pancreas, adrenal glands, and abdominal aorta showe d no acute findings within the limitations of a noncontrast study. The patient's gallbladder is much more distended today measuring over 11 cm in length. Tiny gallstones are noted, but there is no thi ckening of the wall of the gallbladder or streaking around it. Some tiny calcifications are seen wit hin each kidney, presumed to be nonobstructing calculi. No ureteral calculi were seen. The bowel is nondistended. There is some scattered colonic diverticula, but there was no sign of div erticulitis, dilated bowel, or inflammatory changes around bowel. No free air or free fluid was seen . CT of the pelvis shows no pelvic masses, fluid collections, or inflammatory changes. Advanced degene rative changes are seen throughout the lumbar spine. The fluid collection/hematoma in the left lower anterior abdominal wall is still very much present bu t decreasing in size. Today it measures about 13 x 3.3 cm. It does not have evidence of acute blood in its today as it did before. IMPRESSION: 1. Interval increase in size of the gallbladder which does have gallstones. No wall thickening or i nflammatory changes around it. 2. Hematoma of the left lower anterior abdominal wall, still large but decreasing in size since last month. 3. Other findings as listed above. Report in agreement with preliminary reading by [facility]. POS: HOME
== END 2018-03-17 06:10 | disposition short-term general hospital (02) ==
LOC: BURERS 04:04
DX: D50.0 Iron deficiency anemia secondary to blood loss (chronic) (principal); I12.0 Hypertensive chronic kidney disease with stage 5 chronic kidney disease or end stage renal disease; N18.6 End stage renal disease; C16.9 Malignant neoplasm of stomach, unspecified; M10.9 Gout, unspecified; E11.22 Type 2 diabetes mellitus with diabetic chronic kidney disease; E78.5 Hyperlipidemia, unspecified; Z79.899 Other long term (current) drug therapy
CPT/HCPCS: 36415; 71045; 74176; 80053; 82274; 82553; 83690; 83880; 84484; 85025; 86850; 86900; 86901; 93005; 96361; 96374; A4353; C9113

== ENCOUNTER 2018-03-28 15:10 | Observation (INO) | payer MEDICARE ==
[2018-03-28] MEDS ORDERED: Acetaminophen 325 MG TAB PO PRN (16:55)
[2018-03-28 17:03] VITALS: BMI 25.4
[2018-03-28] MEDS: Dronedarone HCl 400 MG TAB PO SCH (18:52)
[2018-03-28] MEDS ORDERED: Insulin Regular 300 UNITS/3 ML VIAL SC PRN (20:12)
[2018-03-28] MEDS ORDERED: Dextrose 5% in Water 1,000 ML IV PRN (20:12)
[2018-03-28] MEDS ORDERED: Dextrose 50% Abboject 50 ML SYRINGE SLOW IVP PRN (20:12)
[2018-03-28] MEDS ORDERED: Nystatin Powder 15 GM BOT TOP PRN (20:13)
[2018-03-28] MEDS: Amlodipine 5 MG TAB PO SCH (21:02)
[2018-03-28] MEDS: Atorvastatin Calcium 10 MG TAB PO SCH (21:02)
[2018-03-28] MEDS: Metoprolol Tartrate 25 MG TAB PO SCH (21:04)
--- NOTE | 2018-03-29 10:10 | HP ---
OBS ADMISSION and DISCHARGE DATE OF ADMISSION: 03/28/2018 CHIEF COMPLAINT: Symptomatic anemia. HISTORY OF PRESENT ILLNESS: An 88-year-old female with underlying gastric cancer with concomitant iron deficiency anemia who was seen yesterday by Hematology/Oncology, Dr. Ford, for subsequent reevaluation regarding her aforementioned diagnoses. PET scan was done showing hypermetabolic mass involving the lesser curvature of the stomach and extending down the posterior wall of the distal gastric body and antrum is consistent with the patient's known malignancy; there are shotty appearing lymph nodes within the gastrohepatic ligament with the most prominent lymph node measuring 9 mm with a peak SUV uptake of 2.3 suspicious for malignant lymphadenopathy. Patient's hemoglobin was rechecked yesterday and found to be 5.3. Of note, she was recently admitted at [facility] within the last couple weeks with symptomatic anemia related to a hemoglobin finding of 5.5. She was treated with 2 units of packed red blood cells during this admission. Gastroenterology did not advise any further intervention regarding this issue related to her known diagnoses of gastric malignancy. Due to her symptomatic anemia and current PET scan findings, I did speak with Dr. Ford who has advised to proceed with transfusion of packed red blood cells to improve her anemic status. However, there has been discussion with the patient and her daughter regarding pursuance of hospice. The patient and her daughter appear agreeable with this plan. It has been arranged for [facility] to see the patient and for evaluation in regards to this. PAST MEDICAL HISTORY: Gout, type 2 diabetes mellitus, hypertension, dyslipidemia, gastric cancer, chronic kidney disease stage 4, recurrent anemia, history of aortic stenosis, status post valve replacement. PAST SURGICAL HISTORY: Tubal ligation, bioprosthetic aortic valve, bladder sling, upper and lower endoscopy. SOCIAL HISTORY: Patient was at home with her daughter. Denies history of smoking, alcohol or illicit drug use. FAMILY HISTORY: Noncontributory. ALLERGIES: BACTRIM and KEFLEX. CURRENT MEDICATIONS: Allopurinol 100 mg p.o. daily, Norvasc 2.5 mg p.o. daily, atorvastatin 20 mg p.o. daily, cholecalciferol 2000 units daily, Multaq 400 mg p.o. b.i.d., ferrous sulfate 325 mg p.o. daily, Lasix 40 mg p.o. daily, metoprolol tartrate 25 mg p.o. b.i.d., Protonix 40 mg p.o. b.i.d. REVIEW OF SYSTEMS: General: The patient has noted fatigue and weakness. Denies fever. Ear, Nose, and Throat: Denies sore throat, nasal drainage or congestion. Cardiovascular: Denies chest pain or palpitations. Respiratory: Mild dyspnea with activity. Gastrointestinal: Denies abdominal pain, nausea, vomiting, diarrhea or constipation. Genitourinary: Denies dysuria. Musculoskeletal: Denies joint pain. Dermatologic: Denies rash. Neurologic: Denies headache. LABORATORY DATA: Outpatient hemoglobin today 5.3. Pending repeat CBC and CMP. IMAGING: PET scan as noted per HPI. PHYSICAL EXAMINATION: VITAL SIGNS: Temperature is 97.8, pulse 72, respiratory rate is 20, oxygen is 93% on room air, blood pressure is 101/51. GENERAL: Patient is alert and oriented. She is in no acute distress. She has noted pallor, generalized weakness. FACE: No asymmetry. EYES: Conjunctivae are clear. Extraocular muscles are intact. Bilateral cataracts, conjunctival pallor. HEENT: Within normal limits. NECK: Supple, with no lymphadenopathy. CARDIOVASCULAR: Regular rate with a 2-3/6 murmur. Normal S1, S2. RESPIRATORY: Faint crackles to the lung base with no increase in respiratory effort. GASTROINTESTINAL: Soft, nontender with a resolving hematoma to the left lower quadrant. EXTREMITIES: No clubbing, cyanosis or trace edema to bilateral lower extremities. SKIN: Well healed sternotomy scar. NEUROLOGIC: Nonfocal. ASSESSMENT AND PLAN: 1. Symptomatic anemia. We will type and cross for 2 units packed red blood cells and follow up CBC. 2. Gastric cancer. [facility] will be contacted for evaluation and likely transition to their care going forward. 3. Chronic kidney disease stage 4. They are about patient's baseline. 4. History of diabetes mellitus. We will withhold prior treatment with sulfonylurea in an effort to avoid hypoglycemia, we will provide a sliding scale regimen accordingly. 5. Hypertension. We will monitor the patient's blood pressure and resume her home blood pressure medications for now. We will hold for any evidence of significant hypotension. 6. Hyperlipidemia. We will resume the patient's home statin. 7. Prophylaxis. The patient is on Protonix b.i.d. for gastric prophylaxis. She is not a candidate for anticoagulation therapy. DISPOSITION: The patient will be evaluated by [facility] today with likely transition to their care. DISCHARGE SUMMARY: PT RECEIVED 2 UNITS PRBC'S WITH IMPROVEMENT OF HGB TO 8.5. SHE WAS EVALUATED BY [facility] AND HAS ACCEPTED FURTHER CARE UNDER THEIR SERVICES. PT HAS BEEN DISCHARGED HOME ON [facility]. CORNELIO
[2018-03-29] MEDS: Allopurinol 100 MG TAB PO SCH (11:26)
[2018-03-29] MEDS: Metoprolol Tartrate 25 MG TAB PO SCH ×2 (11:26→21:42)
[2018-03-29] MEDS: Ferrous Sulfate 325 MG TAB PO SCH (11:26)
[2018-03-29] MEDS: Furosemide 40 MG TAB PO SCH (11:26)
[2018-03-29] MEDS: Dronedarone HCl 400 MG TAB PO SCH ×2 (11:26→18:27)
[2018-03-29 21:09] LABS: #Basophils 0.2 thou/uL (0.0-0.2); #Eosinphils 0.3 thou/uL (0.0-0.7); #Monocytes 1.4 thou/uL (0.11-0.59); #Neutrophils 12.1 thou/uL (1.40-6.50); %Eosinophils 1.8 % (0.0-10.0); %Lymphocytes 12.5 % (21.0-51.0); %Monocytes 8.9 % (0.0-10.0); %Neutrophils 75.8 % (42.0-75.0); ALT (SGPT) 57 U/L (8-55); AST (SGOT) 37 U/L (5-34); Alkaline Phosphatase 256 U/L (40-150); Anion Gap 18 mmol/L (10-20); BUN (Urea Nitrogen) 89 mg/dL (9.8-20.1); Bilirubin, Total 1.2 mg/dL (0.2-1.2); Calc. Creatinine Clearance 14 mL/min (70-130); Calcium 8.3 mg/dL (7.8-10.44); Carbon Dioxide 21 mmol/L (23-31); Chloride 108 mmol/L (98-107); Differential Comment NRBC SEEN; Elliptocytes SLIGHT = 2-5 cells (100X) (0-1/hpf); Estimated GFR-MDRD 15; Globulin 2.6 g/dL (2.4-3.5); Glucose 132 mg/dL (83-110); Hemoglobin 8.5 g/dL (12.0-16.0); MDiff Complete? YES; Macrocytosis MODERATE=16-30 cells (100X) (0-5/hpf); Mean Corpuscular HGB CONC 32.8 g/dL (32.0-36.0); Mean Corpuscular Hemoglobin 29.3 pg (27.0-31.0); Mean Corpuscular Volume 89.3 fL (78.0-98.0); Mean Platelet Volume 7.8 fL (7.4-10.4); Microcytosis SLIGHT = 6-15 cells (100X) (0-5/hpf); Platelet Count 207 thou/uL (130-400); Polychromasia MODERATE = 3-4 cells (100X) (0-2/hpf); Potassium 3.5 mmol/L (3.5-5.1); Protein, Total 5.6 g/dL (6.0-8.3); RBC Distribution Width 19.6 % (11.5-14.5); Red Blood Cell (RBC) Count 2.92 mill/uL (4.20-5.40); Sodium 143 mmol/L (136-145); White Blood Cell (WBC) Count 15.9 thou/uL (4.8-10.8)
[2018-03-29] MEDS: Atorvastatin Calcium 10 MG TAB PO SCH (21:41)
[2018-03-29] MEDS: Amlodipine 5 MG TAB PO SCH (21:43)
[2018-03-30 08:34] VITALS: BP 125/56; TEMP 97.9
[2018-03-30] MEDS: Metoprolol Tartrate 25 MG TAB PO SCH (10:11)
[2018-03-30] MEDS: Ferrous Sulfate 325 MG TAB PO SCH (10:12)
[2018-03-30] MEDS: Dronedarone HCl 400 MG TAB PO SCH (10:12)
[2018-03-30] MEDS: Allopurinol 100 MG TAB PO SCH (10:12)
[2018-03-30] MEDS: Furosemide 40 MG TAB PO SCH (10:13)
== END 2018-03-30 11:48 | disposition hospice, home (50) ==
LOC: INTOOBSV 15:10 → BURMED 15:10 → UNDODISOB 03-30 10:33
PROVIDERS: ADMIT Family Medicine; ATTEND Family Medicine
PROC: 30233N1 Transfusion of Nonautologous Red Blood Cells into Peripheral Vein, Percutaneous Approach (ICD-10-PCS; principal; 2018-03-28)
DX: C16.9 Malignant neoplasm of stomach, unspecified (principal); D63.0 Anemia in neoplastic disease; D50.8 Other iron deficiency anemias; M10.9 Gout, unspecified; I12.9 Hypertensive chronic kidney disease with stage 1 through stage 4 chronic kidney disease, or unspecified chronic kidney disease; E11.22 Type 2 diabetes mellitus with diabetic chronic kidney disease; N18.4 Chronic kidney disease, stage 4 (severe); E78.5 Hyperlipidemia, unspecified; Z79.899 Other long term (current) drug therapy; Z88.1 Allergy status to other antibiotic agents; Z88.2 Allergy status to sulfonamides
CPT/HCPCS: 36416; 36430; 80053; 85025; 86850; 86870; 86900; 86901; 86922; G0378; P9016

== ENCOUNTER 2018-04-09 11:05 | Observation (INO) | payer MEDICARE ==
[2018-04-09 11:29] LABS: #Basophils 0.2 thou/uL (0.0-0.2); #Eosinphils 0.2 thou/uL (0.0-0.7); #Lymphocytes 2.4 thou/uL (1.20-3.40); #Neutrophils 10.3 thou/uL (1.40-6.50); %Basophils 1.2 % (0.0-1.0); %Eosinophils 1.6 % (0.0-10.0); %Lymphocytes 17.2 % (21.0-51.0); %Neutrophils 72.9 % (42.0-75.0); Hemoglobin 7.2 g/dL (12.0-16.0); Mean Corpuscular HGB CONC 32.9 g/dL (32.0-36.0); Mean Corpuscular Hemoglobin 29.2 pg (27.0-31.0); Mean Corpuscular Volume 88.8 fL (78.0-98.0); Mean Platelet Volume 8.1 fL (7.4-10.4); Platelet Count 263 thou/uL (130-400); RBC Distribution Width 16.7 % (11.5-14.5); Red Blood Cell (RBC) Count 2.45 mill/uL (4.20-5.40); White Blood Cell (WBC) Count 14.2 thou/uL (4.8-10.8)
[2018-04-09 11:45] LABS: ALT (SGPT) 26 U/L (8-55); AST (SGOT) 34 U/L (5-34); Albumin 2.9 g/dL (3.4-4.8); Alkaline Phosphatase 233 U/L (40-150); Anion Gap 17 mmol/L (10-20); BUN (Urea Nitrogen) 59 mg/dL (9.8-20.1); Bilirubin, Total 0.5 mg/dL (0.2-1.2); Calc. Creatinine Clearance 0 mL/min (70-130); Carbon Dioxide 25 mmol/L (23-31); Chloride 104 mmol/L (98-107); Estimated GFR-MDRD 27; Globulin 2.8 g/dL (2.4-3.5); Glucose 243 mg/dL (83-110); Potassium 3.7 mmol/L (3.5-5.1); Protein, Total 5.7 g/dL (6.0-8.3); Sodium 142 mmol/L (136-145)
[2018-04-09 11:46] LABS: CKMB 0.7 ng/mL (0-6.6); Troponin I Less than 0.010 ng/mL (< 0.028)
--- NOTE | 2018-04-09 13:28 | RAD ---
PORTABLE CHEST: Date: 04-09-18 An AP portable film at 1120 is compared with a 03-17-18 study. FINDINGS: The heart is minimally enlarged but unchanged from before. There is no vascular congestion, edema, or pleural effusion. Minimal elevation of the right hemidiaphragm is not unlike the prior study. IMPRESSION: No acute thoracic findings. POS: HOME
[2018-04-09] MEDS ORDERED: Ondansetron PF 4 MG/2 ML Vial IVP PRN (14:53)
[2018-04-09] MEDS ORDERED: Ondansetron ODT 4 MG TAB SL PRN (14:53)
[2018-04-09] MEDS ORDERED: Acetaminophen 325 MG TAB PO PRN ×2 (14:53→17:49)
[2018-04-09 15:07] VITALS: BMI 25.2
[2018-04-10 06:17] LABS: #Basophils 0.1 thou/uL (0.0-0.2); #Eosinphils 0.3 thou/uL (0.0-0.7); #Lymphocytes 1.5 thou/uL (1.20-3.40); #Neutrophils 8.3 thou/uL (1.40-6.50); %Basophils 0.6 % (0.0-1.0); %Eosinophils 2.3 % (0.0-10.0); %Lymphocytes 13.7 % (21.0-51.0); %Monocytes 9.1 % (0.0-10.0); %Neutrophils 74.3 % (42.0-75.0); Hemoglobin 5.7 g/dL (12.0-16.0); Mean Corpuscular HGB CONC 34.1 g/dL (32.0-36.0); Mean Corpuscular Hemoglobin 29.8 pg (27.0-31.0); Mean Corpuscular Volume 87.4 fL (78.0-98.0); Mean Platelet Volume 7.6 fL (7.4-10.4); Platelet Count 238 thou/uL (130-400); RBC Distribution Width 16.7 % (11.5-14.5); Red Blood Cell (RBC) Count 1.91 mill/uL (4.20-5.40); White Blood Cell (WBC) Count 11.2 thou/uL (4.8-10.8)
--- NOTE | 2018-04-10 08:17 | HP ---
ADDENDUM REVIEW OF SYSTEMS: Denies nausea, vomiting, abdominal pain. She does have black stools and has had episodes of hematemesis in the past but none lately. Genitourinary: Denies dysuria. Lymphatic: De nies swelling. PHYSICAL EXAMINATION: VITAL SIGNS: Temperature 97.9, pulse 94, respirations 18, O2 saturation 98% on room air, blood press ure 120/58. GENERAL: Thin female in no acute distress, resting comfortably in bed, oriented x3. HEENT: Normocephalic, atraumatic. Pupils are equal, round, and reactive to light and accommodation. Extraocular muscles intact. Nares are patent without discharge. Tongue protrudes in the midline. NECK: Supple, without lymphadenopathy, thyromegaly, JVD or bruit. HEART: Regular rate and rhythm, normal S1, S2. No murmurs, clicks, rubs, or gallops. LUNGS: Clear to auscultation with good air entry bilaterally. No crackles or wheezes. ABDOMEN: Positive bowel sounds in all four quadrants, soft, nontender, nondistended, no masses, guar ding, or rebound tenderness. There is some ecchymosis noted just inferior to the umbilicus that appa rently was secondary to heparin injection at a prior admission. Per the daughter at bedside, this is actually improved. EXTREMITIES: No cyanosis, clubbing, edema. NEUROLOGIC: Cranial nerves II-XII grossly intact with generalized weakness. LABORATORY DATA: White count 14.2, hemoglobin 7.2, hematocrit 21.7, MCV 88.8, MCHC 32.9, RDW 16.7, p latelets 263 with 73% neutrophils and 17% lymphocytes. Sodium 142, potassium 3.7, chloride 104, bica rbonate 25, BUN 59, creatinine 1.79, glucose 243, calcium 9.0, total bilirubin 0.5, AST 34, ALT 26, a lkaline phosphatase 233, CK-MB 0.7, troponin I less than 0.010, albumin 2.9, TSH 0.7. IMAGING: EKG sinus rhythm with a first-degree AV block with a rate of 99 beats per minute and poor a nterior R-wave progression, nonspecific ST changes, no ST depression or elevation. ASSESSMENT AND PLAN: 1. Generalized weakness. This is multifactorial secondary to poor nutritional status, metastatic ga stric adenocarcinoma and anemia. We will get a Social Service's consult to determine further options for help either at home or to help initiate hospice services if this family is agreeable in the nurs ing home setting. I did discuss with the patient and her daughter that ultimately, she will have pro gression of her symptoms and require 24-hour care. 2. Metastatic gastric adenocarcinoma. The patient is currently comfortable without pain. She is no t a candidate for chemo or surgical treatment. Patient will be continued on her pantoprazole 40 b.i. d. 3. Hypoalbuminemia. We will get a dietary consult if the patient becomes a full admission. 4. Chronic blood loss anemia, secondary to gastrointestinal source. The patient's vital signs at th is time are stable without chest pain, shortness of breath. She does have some generalized weakness. We will repeat her H&H in the a.m. With her history of multiple transfusions, not ready to transfu se her at this point secondary to possibility of fluid overload. Patient will be continued on her ir on therapy. 5. Hyperlipidemia. The patient will be continued her statin. 6. Gout. The patient will be continued on her Zyloprim. 7. Chronic kidney disease stage 4. Patient will be continued on her vitamin D and Lasix p.r.n. 8. Prophylaxis. We will continue a PPI. Place SCDs. 9. CODE: The patient upon discussion desires to be a DO NOT RESUSCITATE.
[2018-04-10] MEDS ORDERED: Allopurinol 100 MG TAB PO SCH (09:00)
[2018-04-10] MEDS ORDERED: Furosemide 20 MG TAB PO SCH (09:00)
[2018-04-10] MEDS ORDERED: Ferrous Sulfate 325 MG TAB PO SCH (09:00)
[2018-04-10] MEDS ORDERED: Atorvastatin Calcium 10 MG TAB PO SCH (09:00)
[2018-04-10 11:03] VITALS: BP 124/59; TEMP 98
--- NOTE | 2018-04-10 13:00 | DIS ---
DATE OF ADMISSION: 04/10/2018 DATE OF DISCHARGE: 04/10/2018 ADMISSION DIAGNOSES: Symptomatic anemia, gastric cancer with metastasis, stage 4 chronic kidney disease, hyperlipidemia, history of gout. PROCEDURES: None. HOSPITAL COURSE: An 88-year-old female with underlying metastatic gastric adenocarcinoma presented to the [facility] Emergency Department with progressive weakness related to her repetitive bouts of acute blood loss anemia. Initial CBC revealed a hemoglobin of 7.2 with repeat at 5.7. I have been informed that the patient would be unable to receive blood for approximately 24 hours secondary to having to send off for antibody screening from our facility. Thus, she was given the option to transition as an Obs admission to [facility] in [place] for further care with transfusion of 2 units packed red blood cells in a more time sensitive manner. The patient was agreeable with transition to that facility for this. I have spoken with the [facility] Physician, Dr. Mireles who is in agreeance with the patient transfer and subsequent treatment. Of note, the patient has recently revoked hospice care; she has had prior evaluation with oncology, Dr. Ford, and subsequent PET scan, and there was no advised treatment for her metastatic gastric cancer. She has received several transfusions now approximately on 10-day intervals secondary to her underlying diagnosis. Her most recent transfusion was in [place] at [facility] where she was apparently set up with home health; however, the patient states that this never came to fruition. The patient and her daughter appear to be obstinate in regards to further palliative care at this point in time and have also notified nursing of desire to be off of DNR status which had previously been signed for. DISPOSITION: The patient will be transitioned to [facility] in [place] for transfusion of 2 units packed red blood cells as an Obs admission. DISCHARGE MEDICATIONS: The patient will continue on her usual home medications as there have been no changes. MTDD
== END 2018-04-10 10:30 | disposition short-term general hospital (02) ==
LOC: BURERS 11:05 → BURMED 12:50 → INTOOBSV 12:50
PROVIDERS: ADMIT Family Medicine; ATTEND Family Medicine
DX: C16.9 Malignant neoplasm of stomach, unspecified (principal); D50.0 Iron deficiency anemia secondary to blood loss (chronic); C79.9 Secondary malignant neoplasm of unspecified site; E78.5 Hyperlipidemia, unspecified; M10.9 Gout, unspecified; I12.9 Hypertensive chronic kidney disease with stage 1 through stage 4 chronic kidney disease, or unspecified chronic kidney disease; E11.22 Type 2 diabetes mellitus with diabetic chronic kidney disease; N18.4 Chronic kidney disease, stage 4 (severe); Z66 Do not resuscitate; Z79.899 Other long term (current) drug therapy; Z88.2 Allergy status to sulfonamides; Z88.1 Allergy status to other antibiotic agents; Z88.8 Allergy status to other drugs, medicaments and biological substances
CPT/HCPCS: 36415; 71045; 80053; 82553; 84443; 84484; 85025; 93005; 94760; A4353; G0378

== ENCOUNTER 2018-04-25 16:28 | Emergency (ER) | payer MEDICARE ==
[2018-04-25 17:23] LABS: #Basophils 0.1 thou/uL (0.0-0.2); #Eosinphils 0.1 thou/uL (0.0-0.7); #Lymphocytes 1.9 thou/uL (1.20-3.40); #Monocytes 1.3 thou/uL (0.11-0.59); #Neutrophils 13.5 thou/uL (1.40-6.50); %Basophils 0.7 % (0.0-1.0); %Eosinophils 0.4 % (0.0-10.0); %Lymphocytes 11.2 % (21.0-51.0); %Monocytes 7.5 % (0.0-10.0); %Neutrophils 80.3 % (42.0-75.0); Hemoglobin 7.4 g/dL (12.0-16.0); Mean Corpuscular HGB CONC 32.9 g/dL (32.0-36.0); Mean Corpuscular Hemoglobin 29.8 pg (27.0-31.0); Mean Corpuscular Volume 90.6 fL (78.0-98.0); Mean Platelet Volume 8.1 fL (7.4-10.4); Platelet Count 360 thou/uL (130-400); RBC Distribution Width 14.2 % (11.5-14.5); White Blood Cell (WBC) Count 16.8 thou/uL (4.8-10.8)
[2018-04-25 17:41] LABS: ALT (SGPT) 9 U/L (8-55); AST (SGOT) 15 U/L (5-34); Alkaline Phosphatase 116 U/L (40-150); Anion Gap 19 mmol/L (10-20); BUN (Urea Nitrogen) 40 mg/dL (9.8-20.1); Bilirubin, Total 0.4 mg/dL (0.2-1.2); Calc. Creatinine Clearance 0 mL/min (70-130); Calcium 9.6 mg/dL (7.8-10.44); Carbon Dioxide 24 mmol/L (23-31); Chloride 100 mmol/L (98-107); Estimated GFR-MDRD 28; Globulin 2.8 g/dL (2.4-3.5); Glucose 196 mg/dL (83-110); Magnesium 1.9 mg/dL (1.6-2.6); Protein, Total 5.8 g/dL (6.0-8.3); Sodium 140 mmol/L (136-145)
[2018-04-25 17:47] LABS: Potassium 2.9 mmol/L (3.5-5.1)
[2018-04-25 17:48] LABS: CKMB 0.7 ng/mL (0-6.6)
[2018-04-25] MEDS ORDERED: Diltiazem 125 MG/25 ML ONE (17:52)
[2018-04-25] MEDS ORDERED: Potassium Chloride 20 MEQ TAB ONE (18:03)
--- NOTE | 2018-04-25 20:44 | RAD ---
PORTABLE CHEST: 04/25/18 Comparison is made with the 04/09/18 study. The heart size is unchanged. There are no congestive finding. There are no congestive findings or ple ural effusions. No lobar consolidations were seen. There is perhaps a little bit of right perihilar s treaking, but the finding is minimal and I am not convinced it is significant. The trachea is midline . IMPRESSION: Minimal change since 04/09. POS: HOME
== END 2018-04-25 19:07 | disposition short-term general hospital (02) ==
LOC: BURERS 16:28
DX: I48.91 Unspecified atrial fibrillation (principal); D50.0 Iron deficiency anemia secondary to blood loss (chronic); E87.6 Hypokalemia; C16.9 Malignant neoplasm of stomach, unspecified; I10 Essential (primary) hypertension; M10.9 Gout, unspecified; E78.5 Hyperlipidemia, unspecified; Z79.899 Other long term (current) drug therapy
CPT/HCPCS: 71045; 80053; 82553; 83735; 84484; 93005; 94760; 96361; 96365; 96376